=== PATIENT | female | born 1950 | race Caucasian/White ===

== ENCOUNTER → 2018-11-17 15:01 | Outpatient (CLI) | payer MEDICARE, OTHER, SELFPAY | PROVIDERS: Family Provider Internal Medicine; PCP Internal Medicine; Visit Provider Internal Medicine | DX: M85.851 Other specified disorders of bone density and structure, right thigh (principal); Z78.0 Asymptomatic menopausal state; Z82.62 Family history of osteoporosis | CPT/HCPCS: 77080 ==

== ENCOUNTER → 2019-01-18 11:33 | Outpatient (CLI) | payer MEDICARE, OTHER, SELFPAY ==
--- NOTE | 2019-01-18 | DI.MG.S_ITS ---
BILATERAL DIGITAL SCREENING MAMMOGRAM 3D/2D WITH CAD: 01/18/2019 CLINICAL: Routine screening. Family history of breast cancer. Comparison is made to exams dated: 01/05/2018 mammogram, 11/15/2016 mammogram, and 11/10/2015 mammogram - [facility]. The tissue of both breasts is heterogeneously dense. This may lower the sensitivity of mammography. Current study was also evaluated with a Computer Aided Detection (CAD) system. There are a grouped calcifications in the left breast at 8 o'clock anterior depth. These are more prominent and increased in number. No other significant masses, calcifications, or other findings are seen in either breast. IMPRESSION: INCOMPLETE: NEEDS ADDITIONAL IMAGING EVALUATION The grouped calcifications in the left breast are indeterminate. Mediolateral, spot magnification, and additional views are recommended. This exam was interpreted at Station ID: [id number]. NOTE: For mammograms, a report in lay terms will be sent to the patient. Approximately 15% of breast malignancies will not be visualized mammographically. In the management of a palpable breast mass, a negative mammogram must not discourage biopsy of a clinically suspicious lesion. Electronically Signed By: Callum Crowe M.D. aty/:01/18/2019 13:10:25 letter sent: Additional Imaging Needed ACR BI-RADS Category 0: Incomplete 3340F
== END ==
PROVIDERS: Family Provider Internal Medicine; PCP Internal Medicine; Visit Provider Internal Medicine
DX: Z12.31 Encounter for screening mammogram for malignant neoplasm of breast (principal); Z80.3 Family history of malignant neoplasm of breast
CPT/HCPCS: 77063; 77067

== ENCOUNTER → 2019-02-02 09:37 | Outpatient (CLI) | payer MEDICARE, OTHER, SELFPAY ==
--- NOTE | 2019-02-02 | DI.MG.S_ITS ---
UNILATERAL LEFT DIGITAL DIAGNOSTIC MAMMOGRAM 3D/2D WITH ADDITIONAL VIEWS: 02/02/2019 CLINICAL: Additional evaluation requested from prior study. Comparison is made to exams dated: 01/18/2019 mammogram, 01/05/2018 mammogram, and 11/15/2016 mammogram - [facility]. The tissue of left breast is heterogeneously dense. This may lower the sensitivity of mammography. The previously described grouped calcifications appear to be more loosely grouped on additional imaging and also appear more similar to calcifications on 2018 mammograms. They are visualized in the left breast at 8 o'clock anterior depth. Overall, these are not significantly changed. No other significant masses or calcifications are seen in the breast. IMPRESSION: There is no mammographic evidence of malignancy. A 1 year screening mammogram is recommended. This exam was interpreted at Station ID: [id number]. NOTE: For mammograms, a report in lay terms will be sent to the patient. Approximately 15% of breast malignancies will not be visualized mammographically. In the management of a palpable breast mass, a negative mammogram must not discourage biopsy of a clinically suspicious lesion. Electronically Signed By: Callum Crowe M.D. aty/:02/02/2019 10:56:58 letter sent: Normal Exam ACR BI-RADS Category 2: Benign Finding(s) 3342F
== END ==
PROVIDERS: PCP Internal Medicine; Visit Provider Internal Medicine
DX: R92.8 Other abnormal and inconclusive findings on diagnostic imaging of breast (principal)
CPT/HCPCS: 77065; G0279

== ENCOUNTER → 2020-03-19 08:13 | Outpatient (CLI) | payer MEDICARE, OTHER, SELFPAY ==
--- NOTE | 2020-03-19 | DI.MG.S_ITS ---
BILATERAL DIGITAL SCREENING MAMMOGRAM 3D/2D WITH CAD: 03/19/2020 CLINICAL: Routine screening. Family history of breast cancer. Comparison is made to exams dated: 01/18/2019 mammogram, 01/05/2018 mammogram, and 11/15/2016 mammogram - [facility]. The tissue of both breasts is heterogeneously dense. This may lower the sensitivity of mammography. Current study was also evaluated with a Computer Aided Detection (CAD) system. There are benign calcifications in both breasts. No significant masses, calcifications, or other findings are seen in either breast. The previously described grouped calcifications appear to be more loosely grouped on additional imaging and also appear more similar to calcifications on 2018 mammograms. They are visualized in the left breast at 8 o'clock anterior depth. Overall, these are not significantly changed. No other significant masses or calcifications are seen in the breast. There has been no overall significant interval change. IMPRESSION: There is no mammographic evidence of malignancy. A 1 year screening mammogram is recommended. This exam was interpreted at Station ID: [id number]. NOTE: For mammograms, a report in lay terms will be sent to the patient. Approximately 15% of breast malignancies will not be visualized mammographically. In the management of a palpable breast mass, a negative mammogram must not discourage biopsy of a clinically suspicious lesion. Electronically Signed By: Callum Crowe M.D. at/:03/19/2020 09:32:15 letter sent: Normal Exam ACR BI-RADS Category 2: Benign Finding(s) 3342F
== END ==
PROVIDERS: PCP Internal Medicine; Referring Provider Internal Medicine; Visit Provider Internal Medicine
DX: Z12.31 Encounter for screening mammogram for malignant neoplasm of breast (principal); Z80.3 Family history of malignant neoplasm of breast
CPT/HCPCS: 77063; 77067

== ENCOUNTER → 2020-07-26 15:08 | Outpatient (CLI) | payer OTHER, SELFPAY ==
[2020-07-26 16:58] LABS: COVID19 -Nasal RAPID Negative (Negative)
== END ==
PROVIDERS: PCP Internal Medicine; Visit Provider Physician Assistant
DX: Z11.59 Encounter for screening for other viral diseases (principal)
CPT/HCPCS: 87635

== ENCOUNTER 2020-07-28 11:54 | Day surgery (SDC) | payer OTHER, SELFPAY ==
[2020-07-28] VITALS (7 sets, daily range): BP systolic 97–141; BP diastolic 46–82; PULSE 54–87; RESP 9–16; TEMP 36.4–36.9; O2SAT 92–98; BMI 36.0
[2020-07-28] MEDS: LACTATED RINGERS 1,000 ML 42 ML IV (12:20)
--- NOTE | 2020-07-28 12:21 | PM.HP.1 ---
History of Present Illness History of Present Illness Date Patient Seen: 07/28/20 Chief complaint: SCREENING COLONOSCOPY Narrative: 70 year old female he comes in today for consideration of a screening colonoscopy. Two previous colonoscopies, polyps both times. Last colonoscopy approximately 3 years ago. There have been no lower GI symptoms suggesting disease such as change in bowel habits, bleeding, abdominal pain or anemia. Her father had colon cancer, lived to . Overall health issues have been stable, including no major cardiac events for at least 6 weeks. PCP: GUY Styles Patient History Medical History (Updated 07/31/18 @ 09:24 by Mary Baez) Chicken pox Colon polyps (07/21/09) Depression (2011) Hayfever Insomnia Measles Menopause Mumps Rubella Urge urinary incontinence Surgical History (Updated 07/31/18 @ 09:24 by Mary Baez) Anesthesia History of colonoscopy with polypectomy (04/13/16) History of colonoscopy with polypectomy (07/21/09) History of removal of skin mole Status post appendectomy (09/1980) Family & Social History Family History (Updated 07/31/18 @ 09:03 by Mary Baez) Brother Age: 63 Overweight Father Colon cancer Skin cancer Prostate cancer Grandfather Heart disease Hypertension Grandmother Breast cancer Mother Age: 92 Hypothyroid Hypertension Knee pain Grandfather Cancer Colon cancer Sister Age: 69 Hypothyroid Sister Age: 61 Breast cancer Grandmother No problems noted. Sister No problems noted. Family/Other No problems noted. Family/Other No problems noted. Family/Other No problems noted. Family/Other No problems noted. Social History: household members spouse Tobacco & Substance use: Smoking Status Never smoker alcohol intake frequency holiday/special occasion Substance Use Type does not use Meds Home Medications and Allergies Home Medications Medication Instructions Recorded Confirmed Type aspirin 324 mg #0 08/18/16 History omeprazole 40 mg PO HS 14 Days #0 cap 08/18/16 Rx Allergies Allergy/AdvReac Type Severity Reaction Status Date / Time No Known Drug Allergies Allergy Verified 07/28/20 12:07 Review of Systems Review of Systems ROS: Yes All systems reviewed with the patient and are negative except as otherwise documented Exam Vital Signs (past 8 hours): - 07/28/20 12:15 Temperature 98.5 F Pulse Rate 87 Respiratory Rate 16 Blood Pressure 141/82 H Pulse Oximetry 98 Oxygen Delivery Method Room Air Narrative Exam Narrative: GENERAL: Alert and oriented, appearing stated age and in no acute distress. HEENT: Head normocephalic/atraumatic. Pupils equal, round, and reactive to light and accomodation. Extraocular muscles intact. Tympanic membranes clear. Nasal mucosa moist, septum midline. Oral mucosa moist, no lesions. Neck soft and supple, no lymphadenopathy. LUNGS: Clear to ausculation bilaterally, no wheezes, rhonchi or rales. CV: Normal S1 and S2 with regular rate and rhythm, no audible murmurs, rubs or gallops. ABDOMEN: Soft, non-tender, non-distended, no organomegaly. Positive bowel sounds. EXTREMITIES: No clubbing, cyanosis, or edema. NEURO: Cranial nerves II through XII grossly intact, no focal deficits. PSYCH: Alert and oriented x 3. SKIN: No concerning lesions. Assessment & Plan Assessment & Plan narrative: 1. History of colon polyps 2. Family history of colon cancer 3. Screening for colon cancer Plan for colonoscopy. The nature and character of the procedure as well as anticipated results were discussed. The possibility of not completing the procedure was also discussed. Possible complications including aspiration pneumonia, bleeding, perforation and reaction to medications either for sedation or preparation and missed lesions were discussed. Questions were answered and proceeding to the colonoscopy was elected. Informed consent signed. I sincerely appreciate the referral allowing me to participate in this patient's care. Please contact me with any questions or concerns.
--- NOTE | 2020-07-28 12:26 | PM.OP.ENDO ---
Operative Date/Time/Diagnoses Date of procedure: 07/28/20 Procedure & Clinicians Study performed: Time spent on Discharge and Coordination of post-hospital care: 35 minutes Procedure Notes SCOAP/Timeout: 1:14 p.m. Procedure in detail: ENDOSCOPIST: Neha Bhatt MD Sedation RN: Mara Dietrich RN Sedation start time: 1:15 p.m. Sedation end time: 1:37 p.m. PROCEDURE: Colonoscopy INDICATIONS: 1. History of colon polyps 2. Family history of colon cancer 3. Screening for colon cancer MEDICATION: Levsin 0.125 mg sublingual, incremental doses of Versed and fentanyl until appropriate level sedation achieved. ASA CLASS: 2 CECAL WITHDRAWAL TIME: 8 minutes COMPLICATIONS: None. EXTENT OF PROCEDURE: Cecum. QUALITY OF PREP: Good with portions of liquid stool. PROCEDURE: Prior to insertion of the colonoscope, a digital rectal examination was accomplished with circumferential palpation of the distal rectal mucosa without significant findings being noted. The high-definition colonoscope was passed into the rectum in the usual fashion and advanced over to the cecum without difficulty. The ileocecal valve, appendiceal stoma, and medial wall all could be inspected and no abnormalities were seen. ASCENDING COLON: As the colonoscope was withdrawn, care was taken to expose and inspect the haustral folds and no abnormalities were seen. HEPATIC FLEXURE: Normal, no polyps, diverticula or other abnormalities. TRANSVERSE COLON: Normal, no polyps, diverticula or other abnormalities. DESCENDING COLON: Normal, no polyps, diverticula or other abnormalities. SIGMOID COLON: Normal, no polyps, diverticula or other abnormalities. RECTUM: Normal. J maneuver was produced. There was no significant perianal disease. The J maneuver was broken. The remainder of the rectum was inspected and there was no external hemorrhoid disease. The scope was withdrawn. IMPRESSION: 1. Normal colonoscopy PLAN: 1. Repeat colonoscopy in 5 years secondary to family history. The possibility of a missed lesion including a malignancy has been discussed with the patient previously. Potential alarm symptoms have been discussed and should be reported immediately.
[2020-07-28] MEDS: HYOSCYAMINE 0.125 MG TABLET PO (12:37)
[2020-07-28] MEDS: MIDAZOLAM 5 MG/5 ML VIAL IV (13:30)
[2020-07-28] MEDS: fentaNYL 250 MCG/5 ML INJ IV (13:31)
== END 2020-07-28 14:30 | disposition home or self-care (01) ==
PROVIDERS: PCP Internal Medicine; Referring Provider Internal Medicine; Visit Provider Student in an Organized Health Care Education/Training Program
PROC: 0DJD8ZZ Inspection of Lower Intestinal Tract, Via Natural or Artificial Opening Endoscopic (ICD-10-PCS; CPT 45378; principal; 2020-07-28 13:00)
DX: Z12.11 Encounter for screening for malignant neoplasm of colon (principal); Z80.0 Family history of malignant neoplasm of digestive organs; Z86.010 Personal history of colon polyps
CPT/HCPCS: G0105; J2250; J3010

== ENCOUNTER → 2020-12-19 13:26 | Outpatient (CLI) | payer OTHER, SELFPAY | PROVIDERS: PCP Internal Medicine; Referring Provider Internal Medicine; Visit Provider Internal Medicine | DX: M85.851 Other specified disorders of bone density and structure, right thigh (principal) | CPT/HCPCS: 77080 ==

== ENCOUNTER → 2021-03-27 10:33 | Outpatient (CLI) | payer OTHER, SELFPAY ==
--- NOTE | 2021-03-27 10:34 | DI.MG.S_ITS ---
BILATERAL DIGITAL SCREENING MAMMOGRAM 3D/2D WITH CAD: 03/27/2021 CLINICAL: Routine screening. Family history of breast cancer. Comparison is made to exams dated: 03/19/2020 mammogram, 01/18/2019 mammogram, and 01/05/2018 mammogram - [facility]. The tissue of both breasts is heterogeneously dense. This may lower the sensitivity of mammography. Current study was also evaluated with a Computer Aided Detection (CAD) system. There are benign calcifications in both breasts. No significant masses, calcifications, or other findings are seen in either breast. There has been no significant interval change. IMPRESSION: BENIGN There is no mammographic evidence of malignancy. A 1 year screening mammogram is recommended. This exam was interpreted at Station ID: [id number]. NOTE: For mammograms, a report in lay terms will be sent to the patient. Approximately 15% of breast malignancies will not be visualized mammographically. In the management of a palpable breast mass, a negative mammogram must not discourage biopsy of a clinically suspicious lesion. Electronically Signed By: Callum schwab/andres:03/27/2021 14:35:49 letter sent: Normal Exam ACR BI-RADS Category 2: Benign Finding(s) 3342F
== END ==
PROVIDERS: PCP Internal Medicine; Referring Provider Internal Medicine; Visit Provider Internal Medicine
DX: Z12.31 Encounter for screening mammogram for malignant neoplasm of breast (principal); Z80.3 Family history of malignant neoplasm of breast
CPT/HCPCS: 77063; 77067

== ENCOUNTER 2022-01-01 20:14 | Emergency (ER) | payer MEDICARE, OTHER, SELFPAY ==
[2022-01-01 20:40] VITALS: BP 182/75; PULSE 77; RESP 16; TEMP 36.8; O2SAT 97; BMI 33.3
--- NOTE | 2022-01-01 21:08 | DI.US.S_ITS ---
PROCEDURE: US PERIPH VENOUS LOW EXTREM LT INDICATIONS: suspected DVT Left leg TECHNIQUE: Real-time imaging, as well as color and pulse Doppler interrogation, were performed of the lower extremity deep veins from the inguinal ligament to the popliteal fossa. COMPARISON: None. FINDINGS: The common femoral, femoral and popliteal veins are normally compressible, and free of intraluminal thrombus. Color and pulse Doppler demonstrate normal phasic intraluminal flow. There is normal augmentation response to distal compression maneuver. IMPRESSION: No DVT. Dictated by: Miguel Angel Reyes M.D. on 01/01/2022 at 22:04 Approved by: Miguel Angel Reyes M.D. on 01/01/2022 at 22:05
--- NOTE | 2022-01-02 00:35 | ED.EXTPRO ---
HPI - Extremity Problem General Chief complaint: Extremity Problem,Nontraumatic Stated complaint: Pain lower left leg Time Seen by Provider: 01/02/22 00:20 Source: patient and family Mode of arrival: Ambulatory History of Present Illness HPI Narrative: Patient is a 71-year-old female who is here for evaluation of several days of pain behind her left knee. She was concerned about a blood clot. She has no swelling at her left lower extremity. No chest pain. No shortness of breath. No prior history of blood clots. Does not remember anyone specific incident that caused the discomfort although she states that it does hurt when she bends over and picks up objects. Related Data Home Medications Medication Instructions Recorded Confirmed aspirin 81 mg tablet,delayed 324 mg #0 08/18/16 release Previous Rx's Medication Instructions Recorded omeprazole 40 mg capsule,delayed 40 mg PO HS 14 Days #0 cap 08/18/16 release Allergies Allergy/AdvReac Type Severity Reaction Status Date / Time No Known Drug Allergies Allergy Verified 07/28/20 12:07 Review of Systems Constitutional Constitutional: Denies fever(s) Cardiovascular Cardiovascular: Denies chest pain and Denies dyspnea Respiratory Respiratory: Denies dyspnea Musculoskeletal Musculoskeletal: Reports system reviewed and no additional complaints, except as documented and Reports as per HPI Integumentary/Breasts Skin/Breast: Reports system reviewed and no additional complaints, except as documented and Reports as per HPI Hematologic/Lymphatic On Anticoagulants: No Patient History Medical History Chicken pox Colon polyps (07/21/09) Depression (2011) Hayfever Insomnia Measles Menopause Mumps Rubella Urge urinary incontinence Surgical History (Updated 07/31/18 @ 09:24 by Mary Baez) Anesthesia History of colonoscopy with polypectomy (04/13/16) History of colonoscopy with polypectomy (07/21/09) History of removal of skin mole Status post appendectomy (09/1980) Family History (Updated 07/31/18 @ 09:03 by Mary Baez) Brother Age: 65 Overweight Father Colon cancer Skin cancer Prostate cancer Grandfather Heart disease Hypertension Grandmother Breast cancer Mother Age: 94 Hypothyroid Hypertension Knee pain Grandfather Cancer Colon cancer Sister Age: 71 Hypothyroid Sister Age: 63 Breast cancer Grandmother No problems noted. Sister No problems noted. Family/Other No problems noted. Family/Other No problems noted. Family/Other No problems noted. Family/Other No problems noted. Social History household members: spouse Smoking Status: Never smoker Smoking Status: Never smoker alcohol intake frequency: holidays/special occasions only Substance Use Type: does not use Exam Initial Vital Signs Initial Vital Signs: Vital Signs Temperature 98.3 F 01/01/22 20:40 Pulse Rate 77 01/01/22 20:40 Respiratory Rate 16 01/01/22 20:40 Blood Pressure 182/75 H 01/01/22 20:40 Pulse Oximetry 97 01/01/22 20:40 HENMT Head: normal to inspection and normocephalic Resp Effort & Inspection: normal respiratory effort Cardio Rate: regular rate Neuro General: patient alert, patient awake and moves all extremities Extrem Other: Patient with tenderness to palpation along the medial hamstring posteriorly and along the medial hamstring tendon along its insertion site. The rest of her left knee exam is unremarkable. Course Orders Ordered: ED Orders 01/01/22 21:08 US periph venous low extrem lt Stat Vital Signs Vital signs: Vital Signs - 8 hr 01/01/22 20:40 01/02/22 00:44 Temperature 98.3 F Pulse Rate 77 60 Respiratory Rate 16 14 Blood Pressure 182/75 H 166/75 H Pulse Oximetry 97 96 MDM - Extremity (Nontraumatic) Imaging Data US - DVT: Radiologist's Impression: [address] [address] Ultrasound Report Signed Patient: Regina Reynolds MR#: [id number] : 1950 Acct:[id number] Age/Sex: 71 / F Date of Service: 01/01/22 Loc: ED Accession Number: [id number] ?? Procedure: US periph venous low extrem lt Ordering Provider: Lisa Ye D.O. PROCEDURE:? US PERIPH VENOUS LOW EXTREM LT ? INDICATIONS:? suspected DVT Left leg ? TECHNIQUE:? Real-time imaging, as well as color and pulse Doppler interrogation, were performed of the lower extremity deep veins from the inguinal ligament to the popliteal fossa.? ? COMPARISON:? None. ? FINDINGS:? The common femoral, femoral and popliteal veins are normally compressible, and free of intraluminal thrombus.? Color and pulse Doppler demonstrate normal phasic intraluminal flow.? There is normal augmentation response to distal compression maneuver. ? ? IMPRESSION:? No DVT. ? ? Dictated by: Miguel Angel Reyes M.D. on 01/01/2022 at 22:04 ? ? Approved by: Miguel Angel Reyes M.D. on 01/01/2022 at 22:05?? MDM Narrative Medical decision making narrative: Ultrasound shows no signs of DVT. On physical exam I have a higher suspicion that her symptoms are her left medial hamstring sprain given the discomfort that is clearly along this hamstring and along the hamstring tendon. I did discuss this with her. No further workup required in the emergency department patient will be discharged home. She was given return precautions. She expressed understanding and agreement. Discharge Plan Departure Patient Disposition: Home Clinical Impression: Left leg pain Instructions: DI for Hamstring Strain Activity Restrictions/Additional Instructions: You can take Tylenol/ibuprofen for any discomfort. You can keep ice over the areas this may improve your symptoms as well. Return to the emergency department for any new or worsening symptoms Prescriptions: No Action aspirin 81 MG tablet,delayed release (DR/EC) 324 mg Qty: 0 0RF omeprazole 40 MG capsule,delayed release(DR/EC) 40 mg PO HS 14 Days Qty: 0 0RF Referrals: Alpa Mckeon ARNP [Primary Care Provider] -
[2022-01-02 00:44] VITALS: BP 166/75; PULSE 60; RESP 14; O2SAT 96
== END 2022-01-02 00:45 | disposition home or self-care (01) ==
PROVIDERS: Emergency Provider Emergency Medicine; PCP Internal Medicine
DX: M25.562 Pain in left knee (principal); M79.662 Pain in left lower leg
CPT/HCPCS: 93971; 99283

== ENCOUNTER → 2022-01-11 15:27 | Outpatient (CLI) | payer MEDICARE, OTHER, SELFPAY ==
--- NOTE | 2022-01-11 | DI.RAD.S_ITS ---
PROCEDURE: XR KNEE LT 3V INDICATIONS: LEFT KNEE PAIN TECHNIQUE: 3 views of the knee were acquired. COMPARISON: None. FINDINGS: Bones: No fractures or dislocations. No suspicious bony lesions. Mild to moderate medial and patellofemoral compartment narrowing. No erosions. Soft tissues: Moderate joint effusion. No suspicious soft tissue calcifications. IMPRESSION: Moderate diversion. Dedb-bs-pbyqnari medial and patellofemoral arthritic narrowing. No visualized acute fracture or dislocation. However, if clinical concern and/or pain persist, short interval imaging followup in 7-10 days is recommended, as occult injury cannot be definitively excluded. Dictated by: Margo Victor M.D. on 01/11/2022 at 16:56 Approved by: Margo Victor M.D. on 01/11/2022 at 16:56
== END ==
PROVIDERS: PCP Internal Medicine; Referring Provider Internal Medicine; Visit Provider Internal Medicine
DX: M25.562 Pain in left knee (principal)
CPT/HCPCS: 73562

== ENCOUNTER → 2022-04-02 13:05 | Outpatient (CLI) | payer MEDICARE, OTHER, SELFPAY ==
--- NOTE | 2022-04-02 | DI.MG.S_ITS ---
BILATERAL DIGITAL SCREENING MAMMOGRAM 3D/2D WITH CAD: 04/02/2022 CLINICAL: Routine screening. Family history of breast cancer. Comparison is made to exams dated: 03/27/2021 mammogram, 03/19/2020 mammogram, and 01/18/2019 mammogram - [facility]. The tissue of both breasts is heterogeneously dense. This may lower the sensitivity of mammography. Current study was also evaluated with a Computer Aided Detection (CAD) system. There are benign calcifications in both breasts. No significant masses, calcifications, or other findings are seen in either breast. There has been no significant interval change. IMPRESSION: BENIGN There is no mammographic evidence of malignancy. A 1 year screening mammogram is recommended. Based on the Tyrer Cuzick model (a risk assessment model) the patient's lifetime risk is 14.8% and her 10 year risk is 8.9%. According to the ACR, ACS, and NCCN guidelines, an annual breast MRI exam along with mammogram is recommended if the patient's lifetime risk is 20% or greater. This exam was interpreted at Station ID: [id number]. NOTE: For mammograms, a report in lay terms will be sent to the patient. Approximately 15% of breast malignancies will not be visualized mammographically. In the management of a palpable breast mass, a negative mammogram must not discourage biopsy of a clinically suspicious lesion. Electronically Signed By: Zaida mosley/andres:04/02/2022 16:19:14 letter sent: Normal Exam ACR BI-RADS Category 2: Benign Finding(s) 3342F
== END ==
PROVIDERS: PCP Internal Medicine; Referring Provider Internal Medicine; Visit Provider Internal Medicine
DX: Z12.31 Encounter for screening mammogram for malignant neoplasm of breast (principal); Z80.3 Family history of malignant neoplasm of breast
CPT/HCPCS: 77063; 77067

== ENCOUNTER → 2022-04-26 11:18 | Outpatient (CLI) | payer MEDICARE, OTHER, SELFPAY ==
--- NOTE | 2022-04-26 | DI.MRI.S_ITS ---
PROCEDURE: MR KNEE LT WO CON INDICATIONS: Left knee pain TECHNIQUE: Noncontrast sagittal PD fast spin echo and T2 fast spin echo with fat saturation, sagittal 3-D FLASH with fat saturation; coronal T1 spin echo and PD fast spin echo with fat saturation, and axial PD fast spin echo with fat saturation through the knee. COMPARISON: [facility], CR, XR KNEE LT 3V, 01/11/2022, 15:28. FINDINGS: Image quality: Excellent. Menisci: Moderately displaced radial tear of the posterior horn medial meniscus at the meniscal root ligament insertion site. Amorphous and linear oblique high signal intensity involves the inner, middle, and peripheral 3rd of the medial meniscal body, demonstrating inferior articular surface extension, indicating complex tearing. Lateral meniscus is intact. Cruciate ligaments: The anterior and posterior cruciate ligaments appear intact. Medial structures: The medial collateral ligament appears intact, but demonstrates mild surrounding T2 signal elevation superiorly. Visualized portions of the pes anserinus tendons appear normal. No abnormal bursal fluid. Lateral structures: The lateral collateral ligament, long and short heads of the biceps femoris tendon appear intact. The popliteus tendon appears normal. Iliotibial band appears normal. Anterior structures: The quadriceps and patellar tendons appear intact. Patellar alignment is normal. No femoral trochlear dysplasia or ventral trochlear prominence. No edema in the infrapatellar fat pad. Bones and cartilage: No bone marrow contusions or fractures. Mild tricompartmental periarticular osteophyte formation. Moderate articular cartilage loss diffusely overlies the weight-bearing aspects of the medial femoral condyle and medial tibial plateau. Articular cartilage fibrillation overlies the lateral patellar facet. Joint space: There is a moderate knee joint effusion and a small Dinero's cyst. Normal appearing synovial plicae are incidentally noted. IMPRESSION: 1. Tricompartmental osteoarthritis with associated articular cartilage loss. 2. Medial meniscal tearing. 3. Knee joint effusion and Dinero's cyst. Dictated by: Robbie Abdullahi M.D. on 04/26/2022 at 14:47 Transcribed by: JOSE on 04/26/2022 at 14:49 Approved by: Robbie Abdullahi M.D. on 04/26/2022 at 16:31
== END ==
PROVIDERS: PCP Internal Medicine; Referring Provider Internal Medicine; Visit Provider Internal Medicine
DX: S83.231A Complex tear of medial meniscus, current injury, right knee, initial encounter (principal); M17.12 Unilateral primary osteoarthritis, left knee; M71.22 Synovial cyst of popliteal space [Baker], left knee; M25.462 Effusion, left knee; M25.562 Pain in left knee
CPT/HCPCS: 73721

== ENCOUNTER → 2023-04-27 07:50 | Outpatient (CLI) | payer MEDICARE, OTHER, SELFPAY ==
--- NOTE | 2023-04-27 | DI.MG.S_ITS ---
BILATERAL DIGITAL SCREENING MAMMOGRAM 3D/2D WITH CAD: 04/27/2023 CLINICAL: Routine screening. Family history of breast cancer. Comparison is made to exams dated: 04/02/2022 mammogram, 03/27/2021 mammogram, and 03/19/2020 mammogram - [facility]. Both breasts are heterogeneously dense, which may obscure small masses (category c / 51-75% glandular tissue). Current study was also evaluated with a Computer Aided Detection (CAD) system. There are benign calcifications in both breasts. No significant masses, calcifications, or other findings are seen in either breast. There has been no significant interval change. IMPRESSION: BENIGN There is no mammographic evidence of malignancy. A 1 year screening mammogram is recommended. Based on the Tyrer Cuzick model (a risk assessment model) the patient's lifetime risk is 14.1% and her 10 year risk is 9.0%. According to the ACR, ACS, and NCCN guidelines, an annual breast MRI exam along with mammogram is recommended if the patient's lifetime risk is 20% or greater. This exam was interpreted at Station ID: [id number]. NOTE: For mammograms, a report in lay terms will be sent to the patient. Approximately 15% of breast malignancies will not be visualized mammographically. In the management of a palpable breast mass, a negative mammogram must not discourage biopsy of a clinically suspicious lesion. Electronically Signed By: Jazmin peacock/andres:04/27/2023 11:58:58 letter sent: Normal Exam ACR BI-RADS Category 2: Benign Finding(s) 3342F
== END ==
PROVIDERS: PCP Internal Medicine; Referring Provider Internal Medicine; Visit Provider Internal Medicine
DX: Z12.31 Encounter for screening mammogram for malignant neoplasm of breast (principal); Z80.3 Family history of malignant neoplasm of breast
CPT/HCPCS: 77063; 77067

== ENCOUNTER → 2023-07-15 10:43 | Outpatient (CLI) | payer MEDICARE, OTHER, SELFPAY ==
--- NOTE | 2023-07-15 | DI.RAD.S_ITS ---
Bone Density Report Name: MARISELA CHADWICK Age: 73 Sex: Female Ethnicity: White Date of : 1950 Indication: postmenopausal; screening for osteoporosis; parental hip fracture; Referring Provider: RICHIE BAKER Study: Bone densitometry was performed. Exam Date: July 15, 2023 Accession number: [id number] Bone Density: Region BMD T-score Z-score Classification AP Spine(L1, L2, L3) 0.975 -0.4 1.7 Normal Femoral Neck (Left) 0.723 -1.1 0.7 Osteopenia Total Hip (Left) 0.925 -0.1 1.4 Normal Femoral Neck (Right) 0.760 -0.8 1.1 Normal Total Hip (Right) 0.944 0.0 1.6 Normal Total Hip Mean 0.934 -0.1 1.5 Normal World Health Organization criteria for BMD impression classify patients as: Normal (T-score at or above -1.0), Osteopenia (T-score between -1.0 and -2.5), or Osteoporosis (T-score at or below -2.5). 10-year Fracture Risk(1): Major Osteoporotic Fracture 13% Hip Fracture 2.4% Reported Risk Factors: [place] (), Neck BMD=0.723, BMI=36.0, parental fracture (1) FRAX(R) Version 3.08. Fracture probability calculated for an untreated patient. Fracture probability may be lower if the patient has received treatment. Previous Exams: -- Region Exam Age BMD T-score BMD Change BMD Change Date g/cm2 vs Baseline vs Previous -- AP Spine (L1-L3) 07/15/2023 73 0.975 -0.4 0.051 (5.5%)# -0.003 (-0.4%)# 12/19/2020 70 0.979 -0.4 0.054 (5.8%)* 0.054 (5.8%)* 11/17/2018 68 0.925 -0.8 Total Hip(Left) 07/15/2023 73 0.925 -0.1 0.028 (3.2%)# -0.002 (-0.2%)# 12/19/2020 70 0.926 -0.1 0.030 (3.4%)* 0.030 (3.4%)* 11/17/2018 68 0.896 -0.4 Total Hip(Right) 07/15/2023 73 0.944 0.0 0.090 (10.5%)# 0.074 (8.5%)# 12/19/2020 70 0.870 -0.6 0.016 (1.8%) 0.016 (1.8%) 11/17/2018 68 0.854 -0.7 -- *Denotes significance at 95% confidence level, LSC for AP Spine = 0.022 g/cm2, LSC for Total Hip = 0.027 g/cm2 Rate of change results reflect vertebral levels common to all scans # Denotes dissimilar scan types or analysis methods Impression: The patient has low bone mass, based on the Left Femoral Neck T-score. The patient has an estimated ten-year risk of hip fracture of 2.4% and an estimated ten-year risk of major fracture of 13%, based on the WHO FRAX algorithm. The patient has risk factors, including: parental hip fracture. No significant bone loss was observed. Discussion: BONE DENSITY IS LOW AT ONE OR MORE SKELETAL SITES. This patient's lowest T-score is low at one or more skeletal sites. It meets the World Health Organization's (WHO) criteria for low bone mass (T-score between -1.0 and -2.5). The patient's 10-year risk of fracture as calculated by FRAX is less than the threshold where pharmacological therapy is recommended by the National Osteoporosis Foundation (NOF). However, all treatment decisions require clinical judgment and consideration of individual patient factors, including patient preferences, comorbidities, previous drug use, risk factors not captured in the FRAX model (e.g., frailty, falls, vitamin D deficiency, increased bone turnover, interval significant decline in bone density) and possible under or overestimation of fracture risk by FRAX. The patient should follow a healthful lifestyle (good nutrition with adequate calcium and vitamin D, and appropriate weight-bearing exercise). Follow-Up: Consider repeating this study in 2 to 3 years to reassess this patient's status, or sooner if there is some new clinical indication. Reported by: MICHELLE CONDON M.D. on 07/15/2023 11:20:00 AM.
== END ==
PROVIDERS: PCP Internal Medicine; Referring Provider Internal Medicine; Visit Provider Internal Medicine
DX: N95.9 Unspecified menopausal and perimenopausal disorder (principal); M85.852 Other specified disorders of bone density and structure, left thigh
CPT/HCPCS: 77080

== ENCOUNTER → 2023-09-28 07:41 | Outpatient (CLI) | payer MEDICARE, OTHER, SELFPAY ==
--- NOTE | 2023-09-28 07:42 | DI.US.S_ITS ---
PROCEDURE: US PELVIC COMPLETE INDICATIONS: PMB TECHNIQUE: Real-time scanning was performed of the pelvic organs, with image documentation. Additional endovaginal scanning was necessary due to incomplete visualization of the adnexal and endometrial structures by transabdominal scanning. COMPARISON: None. FINDINGS: Uterus: Uterus is anteverted and normal in size at 8.5 x 5.7 x 4.0 cm. The myometrium is heterogeneous. The endometrium measures 9 mm combined thickness. Internal cystic change within the endometrium Ovaries: The right ovary measures 7.8 x 6.3 x 6.7 cm, with a calculated ovarian volume of 172 cc. The the left ovary is not visualized. Left ovarian cystic lesion with possible , punctate papillary projection measuring 6.6 x 5.9 x 6.1 centimeters. Within the mid pelvis, there is a solid and cystic lesion measuring 15.2 x 13.6 x 11.7 centimeters. Other: No pathologic free abdominal or pelvic fluid. IMPRESSION: Endometrium measures 9 millimeters, with internal cystic change. Findings favor endometrial hypertrophy over malignancy. Heterogeneous, solid and cystic mass in the posterior pelvis measuring 15.2 x 13.6 x0.7 centimeters. Findings are concerning for malignancy, possibly ovarian in origin. Recommend pelvic MRI with contrast (gynecologic mass protocol). Right ovarian cystic lesion with possible punctate papillary projection. This could be evaluated with MRI. We strive to produce accurate, complete, and clear reports of imaging services. To assist us in improving patient care, this report was composed using standard report templates and voice recognition software. Therefore, it may contain abnormal punctuation, insertions and/or omissions. Occasional wrong-word or sound-alike substitutions may occur. Though we review the report and make efforts to correct it, we do recommend that the report be read carefully in proper context to recognize any text inaccuracies. Dictated by: Mckinley Odell M.D. on 09/28/2023 at 9:00 Approved by: Mckinley Odell M.D. on 09/28/2023 at 9:06
== END ==
LOC: US 07:42
PROVIDERS: PCP Internal Medicine; Referring Provider Registered Nurse; Visit Provider Registered Nurse
DX: N95.0 Postmenopausal bleeding (principal); R19.00 Intra-abdominal and pelvic swelling, mass and lump, unspecified site; N83.201 Unspecified ovarian cyst, right side
CPT/HCPCS: 76830; 76856; 93976

== ENCOUNTER → 2023-09-30 08:10 | Outpatient (CLI) | payer MEDICARE, OTHER, SELFPAY ==
--- NOTE | 2023-09-30 08:13 | DI.US.S_ITS ---
PROCEDURE: US ABDOMEN COMPLETE INDICATIONS: PELVIC MASS,ABNORMAL LIVER ENZYMES TECHNIQUE: Real-time scanning was performed of the abdominal and retroperitoneal organs, with image documentation. COMPARISON: [facility], US, ABDOMEN COMPLETE, 12/12/2015, 8:23. FINDINGS: Liver: Liver is normal in size and homogeneous in echotexture. No solid mass. Gallbladder: Cholelithiasis without wall thickening or adjacent fat stranding to suggest acute cholecystitis. Biliary ducts: Intrahepatic bile ducts are non-dilated. Extrahepatic bile duct caliber measures 4 mm. Normal is 6-7 mm or less in diameter, or 10 mm or less post-cholecystectomy. Pancreas: Visualized portions of the pancreas are sonographically normal. Spleen: Spleen is normal in size and homogeneous in echotexture. Kidneys: Kidneys are normal in size and echotexture. Right kidney measures 11.3 cm long; left kidney measures 11.7 cm long. No hydronephrosis or nephrolithiasis. No solid masses. Aorta: Visualized aorta is normal in caliber at less than 3 cm. Iliacs: Proximal common iliac arteries are normal in caliber at less than 2.5 cm. IVC: Intrahepatic inferior vena cava is patent. Miscellaneous: Small volume ascites. IMPRESSION: Small volume ascites, probably malignant given pelvic ultrasound and MRI findings. No solid hepatic mass. Cholelithiasis without wall thickening or adjacent fat stranding to suggest acute cholecystitis. Dictated by: Mckinley Odell M.D. on 09/30/2023 at 12:27 Approved by: Mckinley Odell M.D. on 09/30/2023 at 12:28
--- NOTE | 2023-09-30 08:13 | DI.MRI.S_ITS ---
PROCEDURE: MR PELVIS WO/W CON INDICATIONS: PELVIC MASS,ABNORMAL LIVER ENZYMES TECHNIQUE: Coronal HASTE, sagittal breath-hold T2 FSE; axial T1 FSE with and without fat saturation through the pelvis. Optional long- and short-axis uterine nonbreath-hold T2 FSE through the uterus. Sagittal or axial dynamic VIBE during administration of contrast. Post-contrast axial or coronal VIBE/2-D FLASH with fat saturation from the iliac crests to the symphysis. Optional diffusion weighted imaging and ADC may be performed. COMPARISON: [facility], US, US PELVIC COMPLETE, 09/28/2023, 8:06. FINDINGS: Image quality: Excellent. Uterus: Uterus is normal in size. Endometrium is normal in thickness. Junctional zone is normal in thickness at 12 mm or less. Adnexa: Right ovarian mass measuring 11.2 x 10.7 by 12.0 centimeters. This contains cystic and solid components, with extensive papillary projections the mass contacts the wall of the sigmoid colon along the anterior margin (series 5, image 9). Urinary system: Bladder wall is normal in thickness. Distal ureters are non distended. Urethra appears normal in morphology. Nodes and vessels: No pelvic or inguinal adenopathy by size criteria. Iliac vessels are normal in size. Bowel and peritoneum: Small volume ascites. Inferior colon and small bowel loops are normal in caliber. No definite peritoneal deposit identified. Soft tissues: No inguinal hernias. No findings of pelvic floor incompetence in the absence of provocation. Bones: Marrow demonstrates normal overall signal. IMPRESSION: O-RADS 5 right ovarian mass, presumably ovarian cystadenocarcinoma. No pelvic adenopathy. Small volume ascites, presumably malignant. No definite peritoneal nodules. Dictated by: Mckinley Odell M.D. on 09/30/2023 at 12:11 Approved by: Mckinley Odell M.D. on 09/30/2023 at 12:26
== END ==
PROVIDERS: PCP Internal Medicine; Referring Provider Internal Medicine; Visit Provider Internal Medicine
DX: N95.0 Postmenopausal bleeding (principal); N83.9 Noninflammatory disorder of ovary, fallopian tube and broad ligament, unspecified; R18.8 Other ascites; K80.20 Calculus of gallbladder without cholecystitis without obstruction
CPT/HCPCS: 72197; 76700; A9579

== ENCOUNTER 2023-11-20 05:07 | Emergency (ER) | payer MEDICARE, OTHER, SELFPAY ==
[2023-11-20] VITALS (8 sets, daily range): BP systolic 124–148; BP diastolic 57–69; PULSE 61–65; RESP 14–22; TEMP 36.8; O2SAT 95–99; BMI 32.5
--- NOTE | 2023-11-20 05:17 | DI.CT.S_ITS ---
PROCEDURE: CT ABDOMEN PELVIS W CON INDICATIONS: SEVERE BILAT LOWER ABD PAIN, S/P CHEMO TECHNIQUE: After the administration of intravenous contrast, axial sections acquired from the lung bases to the pubic symphysis. Coronal and sagittal reformats were performed. For radiation dose reduction, the following was used: automated exposure control, adjustment of mA and/or kV according to patient size. COMPARISON: [facility], MR, MR PELVIS WO/W CON, 09/30/2023, 8:27. FINDINGS: Image quality: Diagnostic. Lower Chest: No pleural effusion. Central venous line. ABDOMEN: Liver: No solid mass. Gallbladder: No radiopaque gallstones or wall thickening. Biliary ducts: No biliary dilation. Pancreas: No ductal dilation. Spleen: Size is within normal limits. Adrenal Glands: No adrenal nodules. Kidneys and Ureters: No hydronephrosis. No solid mass. No complex renal cystic lesion which requires follow up. Stomach and Bowel: Normal colonic caliber, without significant wall thickening. The appendix is absent. Peritoneum: No abnormal intraperitoneal fluid. No free air. Cystic structure anterior to the right psoas muscle at the level of the common iliac artery bifurcation, measuring 3.7 x 2.6 cm, (2/54). This area is within the field of view on the post-contrast coronal series 23 on the prior MRI pelvis and is not visualized. No mural nodule seen. Ventral Wall: No significant ventral hernia. Lower midline scar. Abdominal Nodes: No retroperitoneal or mesenteric adenopathy by size criteria. Vessels: Aorta and inferior vena cava are normal in size. PELVIS: Pelvic Organs: Uterus and ovaries are absent. Bladder: Decompressed. Pelvic Nodes: No enlarged lymph nodes. Miscellaneous: No inguinal hernias are seen. Bones: No aggressive osseous abnormality. IMPRESSION: 1. No acute abnormality identified. No free fluid. 2. Post hysterectomy and oophorectomy. 3. Right retroperitoneal cyst measuring 3.7 cm is indeterminate. Dictated by: Larry Oliver M.D. on 11/20/2023 at 8:12 Approved by: Larry Oliver M.D. on 11/20/2023 at 8:24
--- NOTE | 2023-11-20 05:40 | ED_ITS ---
HPI - Abdominal Pain <Lisa Tomlinson MD - Last Filed: 11/21/23 04:07> General Chief Complaint: Abdominal Pain Stated Complaint: abd pain Time Seen by Provider: 11/20/23 05:10 Source: EMS Mode of arrival: EMS History of Present Illness HPI narrative: 73-year-old female with history of ovarian cancer, status post JARED BSO, omentectomy, right pelvic and para-aortic lymph node dissection on 10/06/2023, status post initial chemotherapy infusion 11/17 presents by EMS from home for bilateral lower quadrant abdominal pain. Patient states that while under going her 1st chemotherapy infusion she felt lightheaded and strange. She was given a steroid as well as a dose of Benadryl. She was able to complete her chemotherapy and she was subsequently discharged home. She states that she was told to look out for nausea, but not discharged on any medications. She states that yesterday she began to notice soreness in her pelvic and lower abdominal region. She initially attributed it to constipation and took MiraLax. She states that this temporarily ease the pain, but it continued to worsen and tonight she could not take it any longer and called 911. Related Data Home Medications Medication Instructions Recorded Confirmed aspirin 81 mg tablet,delayed 324 mg ##0 08/18/16 release Previous Rx's Medication Instructions Recorded omeprazole 40 mg capsule,delayed 40 mg PO HS 14 days #0 caps 08/18/16 release Allergies Allergy/AdvReac Type Severity Reaction Status Date / Time No Known Drug Allergies Allergy Verified 07/28/20 12:07 Review of Systems <Lisa Tomlinson MD - Last Filed: 11/21/23 04:07> Review of Systems Narrative: Negative except as noted above Patient History <Lisa Tomlinson MD - Last Filed: 11/21/23 04:07> Medical History Chicken pox Colon polyps (07/21/09) Depression (2011) Hayfever Insomnia Measles Menopause Mumps Rubella Urge urinary incontinence Surgical History (Updated 07/31/18 @ 09:24 by Mary Baez) History of colonoscopy with polypectomy (07/21/09) History of colonoscopy with polypectomy (04/13/16) History of removal of skin mole Anesthesia Status post appendectomy (09/1980) Family History (Updated 07/31/18 @ 09:03 by Mary Baez) Brother Age: 66 Overweight Father Colon cancer Skin cancer Prostate cancer Grandfather Heart disease Hypertension Grandmother Breast cancer Mother Age: 95 Hypothyroid Hypertension Knee pain Grandfather Cancer Colon cancer Sister Age: 72 Hypothyroid Sister Age: 64 Breast cancer Grandmother No problems noted. Sister No problems noted. Family/Other No problems noted. Family/Other No problems noted. Family/Other No problems noted. Family/Other No problems noted. Social History household members: spouse Smoking Status: Never smoker Smoking Status: Never smoker alcohol intake frequency: holidays/special occasions only Substance Use Type: does not use Exam <Lisa Tomlinson MD - Last Filed: 11/21/23 04:07> Initial Vital Signs Initial Vital Signs: Vital Signs Temperature 98.3 F 11/20/23 05:10 Pulse Rate 62 11/20/23 05:10 Respiratory Rate 22 11/20/23 05:10 Blood Pressure 148/69 H 11/20/23 05:10 Pulse Oximetry 99 11/20/23 05:10 Oxygen Delivery Method Room Air 11/20/23 05:10 Const: Awake, alert, no acute distress, nontoxic appearing Cardiac: regular rate, regular rhythm RESP: unlabored, clear bilaterally, no wheezing GI: Atraumatic, soft, lower abdominal surgical scar clean, dry, well healed. No reproducible tenderness to light or deep palpation MSK: Atraumatic, full range of motion, pulses equal Skin: Warm, Dry, intact, no rashes Neuro: AO x3, CN II-XII grossly intact, moves all extremities <Kristopher Macias DO - Last Filed: 11/20/23 09:02> Initial Vital Signs Initial Vital Signs: Vital Signs Temperature 98.3 F 11/20/23 05:10 Pulse Rate 62 11/20/23 05:10 Respiratory Rate 22 11/20/23 05:10 Blood Pressure 148/69 H 11/20/23 05:10 Pulse Oximetry 99 11/20/23 05:10 Oxygen Delivery Method Room Air 11/20/23 05:10 Course <Lisa Tomlinson MD - Last Filed: 11/21/23 04:07> Orders Ordered: Discontinued Medications Heparin Sodium (Porcine) (Heparin 500 Unit/5 Ml Port Flush) 500 unit IV PRN PRN PRN Reason: Flush Last Admin: 11/20/23 09:20 Dose: 500 unit Documented By: SPF Hydromorphone HCl (Hydromorphone 0.5 Mg Inj) 0.5 mg IV NOW ONE Stop: 11/20/23 05:18 Last Admin: 11/20/23 06:08 Dose: 0.5 mg Documented By: SB Vital Signs Vital signs: Vital Signs - 8 hr 11/20/23 05:10 11/20/23 05:13 11/20/23 05:14 Temperature 98.3 F Pulse Rate 62 61 Respiratory Rate 22 Blood Pressure 148/69 H Pulse Oximetry 99 99 99 Oxygen Delivery Method Room Air Room Air 11/20/23 05:17 Temperature Pulse Rate Respiratory Rate Blood Pressure 148/69 H Pulse Oximetry Oxygen Delivery Method <Kristopher Macias DO - Last Filed: 11/20/23 09:02> Orders Ordered: Discontinued Medications Heparin Sodium (Porcine) (Heparin 500 Unit/5 Ml Port Flush) 500 unit IV PRN PRN PRN Reason: Flush Last Admin: 11/20/23 09:20 Dose: 500 unit Documented By: SPF Hydromorphone HCl (Hydromorphone 0.5 Mg Inj) 0.5 mg IV NOW ONE Stop: 11/20/23 05:18 Last Admin: 11/20/23 06:08 Dose: 0.5 mg Documented By: PAUL Vital Signs Vital signs: Vital Signs - 8 hr 11/20/23 05:10 11/20/23 05:13 11/20/23 05:14 Temperature 98.3 F Pulse Rate 62 61 Respiratory Rate 22 Blood Pressure 148/69 H Pulse Oximetry 99 99 99 Oxygen Delivery Method Room Air Room Air 11/20/23 05:17 Temperature Pulse Rate Respiratory Rate Blood Pressure 148/69 H Pulse Oximetry Oxygen Delivery Method MDM - Abdominal Pain <Lisa Tomlinson MD - Last Filed: 11/21/23 04:07> Differential Diagnosis Differential diagnosis: Likely abdominal pain, acute appendicitis and calculus of kidney Lab Data 11/20/23 06:00 11/20/23 06:00 Labs: Lab Results 11/20/23 11/20/23 Range/Units 06:00 06:38 WBC 3.4 L (4.5-11.0) X10^3/uL RBC 3.54 L (4.0-5.2) X10^6/uL Hgb 11.2 L (12.0-16.0) g/dL Hct 33.0 L (36-46) % MCV 93.2 (80-100) fL MCH 31.5 (26-34) PG MCHC 33.8 (30-36) % RDW 12.8 (11.6-14.8) % Plt Count 240 (150-400) X10^3/uL Neut % (Auto) 43.6 L (50-75) % Lymph % (Auto) 43.9 H (25-40) % [place] % (Auto) 2.5 L (3-14) % Eos % (Auto) 8.8 H (2-4) % Baso % (Auto) 1.2 (0-2) % Neut # (Auto) 1500 (6475-5625) /uL Lymph # (Auto) 1500 (2221-4001) /uL [place] # (Auto) 100 (0-900) /uL Eos # (Auto) 300 (0-450) /uL Baso # (Auto) 0 (0-100) /uL Sodium 140 (137-145) mmol/L Potassium 3.4 (3.4-5.1) mmol/L Chloride 110 H (98-107) mmol/L Carbon Dioxide 26 (22-32) mmol/L BUN 13 (7-17) mg/dL Creatinine 0.75 (0.52-1.04) mg/dL Estimated GFR > 60 (>60) mL/min BUN/Creatinine Ratio 17.3 (6-22) Glucose 93 (80-110) mg/dL Calcium 8.9 (8.4-10.2) mg/dL Total Bilirubin 0.6 (0.2-1.3) mg/dL AST 53 H (14-36) IU/L ALT 94 H (<35) IU/L Alkaline Phosphatase 119 (38-126) U/L Total Protein 6.4 (6.3-8.2) g/dL Albumin 3.7 (3.5-5.0) g/dL Globulin 2.7 (1.7-4.1) g/dL Albumin/Globulin Ratio 1.4 (1.0-2.8) Urine Color Yellow Urine Appearance Clear Urine pH 7.0 (4.5-8.0) Ur Specific [place] <=1.005 (1.000-1.035) Urine Protein Negative (Negative) Urine Glucose (UA) Negative (Negative) g/dL Urine Ketones Negative (NEGATIVE) Urine Occult Blood Negative (Negative) Urine Nitrate Negative (Negative) Urine Bilirubin Negative (NEGATIVE) Urine Urobilinogen 0.2 (0.2) E.U./dL Ur Leukocyte Esterase Negative (NEGATIVE) Urine RBC None seen (0-5/HPF) Urine WBC None seen (0-5/HPF) Ur Squamous Epith Cells 1-5 /hpf (0-5/HPF) Urine Bacteria None seen (None) Ur Culture Indicated? Cult not indicated Vol Urine Centrifuged 10ml (spun) MDM Narrative Medical decision making narrative: Nontoxic appearing patient presenting for lower abdominal pain, known history of ovarian cancer, however her mass was resected and it was hopeful that with chemotherapy patient's cancer we will be cured. Abdomen is soft, there is no reproducible tenderness to palpation, however based on patient's medical history as well as fairly recent intra-abdominal surgery as well as recent induction chemotherapy plan to order laboratory work, CT imaging. Port accessed for medication administration and lab drop per patient request. Dilaudid for pain. Labs so far unremarkable. Pending imaging. Care of patient signed to Dr. Macias at 0700 Dr Macias: Received turned over. Review patient's history and physical and workup up to this point. Labs are unremarkable. CT scan shows no acute pathology. Patient states her symptoms have improved after pain medication. Does not appear to be any source of infection. No indication for surgical consultation. Discussed all this with the patient. She understands lack of definitive diagnosis. Will discharge patient home with return precautions. She expressed understanding and agreement. <Kristopher Macias, DO - Last Filed: 11/20/23 09:02> Lab Data Attestation: I reviewed the patient's lab results. Labs: Lab Results 11/20/23 11/20/23 Range/Units 06:00 06:38 WBC 3.4 L (4.5-11.0) X10^3/uL RBC 3.54 L (4.0-5.2) X10^6/uL Hgb 11.2 L (12.0-16.0) g/dL Hct 33.0 L (36-46) % MCV 93.2 (80-100) fL MCH 31.5 (26-34) PG MCHC 33.8 (30-36) % RDW 12.8 (11.6-14.8) % Plt Count 240 (150-400) X10^3/uL Neut % (Auto) 43.6 L (50-75) % Lymph % (Auto) 43.9 H (25-40) % [place] % (Auto) 2.5 L (3-14) % Eos % (Auto) 8.8 H (2-4) % Baso % (Auto) 1.2 (0-2) % Neut # (Auto) 1500 (6945-4819) /uL Lymph # (Auto) 1500 (6263-6996) /uL [place] # (Auto) 100 (0-900) /uL Eos # (Auto) 300 (0-450) /uL Baso # (Auto) 0 (0-100) /uL Sodium 140 (137-145) mmol/L Potassium 3.4 (3.4-5.1) mmol/L Chloride 110 H (98-107) mmol/L Carbon Dioxide 26 (22-32) mmol/L BUN 13 (7-17) mg/dL Creatinine 0.75 (0.52-1.04) mg/dL Estimated GFR > 60 (>60) mL/min BUN/Creatinine Ratio 17.3 (6-22) Glucose 93 (80-110) mg/dL Calcium 8.9 (8.4-10.2) mg/dL Total Bilirubin 0.6 (0.2-1.3) mg/dL AST 53 H (14-36) IU/L ALT 94 H (<35) IU/L Alkaline Phosphatase 119 (38-126) U/L Total Protein 6.4 (6.3-8.2) g/dL Albumin 3.7 (3.5-5.0) g/dL Globulin 2.7 (1.7-4.1) g/dL Albumin/Globulin Ratio 1.4 (1.0-2.8) Urine Color Yellow Urine Appearance Clear Urine pH 7.0 (4.5-8.0) Ur Specific [place] <=1.005 (1.000-1.035) Urine Protein Negative (Negative) Urine Glucose (UA) Negative (Negative) g/dL Urine Ketones Negative (NEGATIVE) Urine Occult Blood Negative (Negative) Urine Nitrate Negative (Negative) Urine Bilirubin Negative (NEGATIVE) Urine Urobilinogen 0.2 (0.2) E.U./dL Ur Leukocyte Esterase Negative (NEGATIVE) Urine RBC None seen (0-5/HPF) Urine WBC None seen (0-5/HPF) Ur Squamous Epith Cells 1-5 /hpf (0-5/HPF) Urine Bacteria None seen (None) Ur Culture Indicated? Cult not indicated Vol Urine Centrifuged 10ml (spun) Imaging Data CT scan - abdomen/pelvis: Radiologist's Impression: PROCEDURE: CT ABDOMEN PELVIS W CON INDICATIONS: SEVERE BILAT LOWER ABD PAIN, S/P CHEMO TECHNIQUE: After the administration of intravenous contrast, axial sections acquired from the lung bases to the pubic symphysis. Coronal and sagittal reformats were performed. For radiation dose reduction, the following was used: automated exposure control, adjustment of mA and/or kV according to patient size. COMPARISON: [facility], , MR PELVIS WO/W CON, 09/30/2023, 8:27. FINDINGS: Image quality: Diagnostic. Lower Chest: No pleural effusion. Central venous line. ABDOMEN: Liver: No solid mass. Gallbladder: No radiopaque gallstones or wall thickening. Biliary ducts: No biliary dilation. Pancreas: No ductal dilation. Spleen: Size is within normal limits. Adrenal Glands: No adrenal nodules. Kidneys and Ureters: No hydronephrosis. No solid mass. No complex renal cystic lesion which requires follow up. Stomach and Bowel: Normal colonic caliber, without significant wall thickening. The appendix is absent. Peritoneum: No abnormal intraperitoneal fluid. No free air. Cystic structure anterior to the right psoas muscle at the level of the common iliac artery bifurcation, measuring 3.7 x 2.6 cm, (2/54). This area is within the field of view on the post-contrast coronal series 23 on the prior MRI pelvis and is not visualized. No mural nodule seen. Ventral Wall: No significant ventral hernia. Lower midline scar. Abdominal Nodes: No retroperitoneal or mesenteric adenopathy by size criteria. Vessels: Aorta and inferior vena cava are normal in size. PELVIS: Pelvic Organs: Uterus and ovaries are absent. Bladder: Decompressed. Pelvic Nodes: No enlarged lymph nodes. Miscellaneous: No inguinal hernias are seen. Bones: No aggressive osseous abnormality. IMPRESSION: 1. No acute abnormality identified. No free fluid. 2. Post hysterectomy and oophorectomy. 3. Right retroperitoneal cyst measuring 3.7 cm is indeterminate. MDM Narrative Medical decision making narrative: Nontoxic appearing patient presenting for lower abdominal pain, known history of ovarian cancer, however her mass was resected and it was hopeful that with chemotherapy patient's cancer we will be cured. Abdomen is soft, there is no reproducible tenderness to palpation, however based on patient's medical history as well as fairly recent intra-abdominal surgery as well as recent induction chemotherapy plan to order laboratory work, CT imaging. Port accessed for medication administration and lab drop per patient request. Dilaudid for pain. Dr Macias: Received turned over. Review patient's history and physical and workup up to this point. Labs are unremarkable. CT scan shows no acute pathology. Patient states her symptoms have improved after pain medication. Does not appear to be any source of infection. No indication for surgical consultation. Discussed all this with the patient. She understands lack of definitive diagnosis. Will discharge patient home with return precautions. She expressed understanding and agreement. Discharge Plan Departure Patient Disposition: Home Clinical Impression: Abdominal pain Instructions: DI for Abdominal Pain-Adult Activity Restrictions/Additional Instructions: Fortunately your workup here in the emergency department is very reassuring. Recommend that you follow all of the instructions given to you by Oncology and keep all of your scheduled medical appointments. Return to the emergency department for new symptoms. Prescriptions: No Action aspirin 81 MG tablet,delayed release (DR/EC) 324 mg Qty: 0 omeprazole 40 MG capsule,delayed release(DR/EC) 40 mg PO HS 14 Days Qty: 0 0RF Referrals: Alpa Mckeon ARNP [Primary Care Provider] - Stand Alone Forms: Patient Portal/API
[2023-11-20] MEDS: HYDROMORPHONE 0.5 MG INJ IV (06:08)
[2023-11-20 06:09] LABS: Add Manual Diff / Slide Review NO; Basophils Absolute Auto 0 /uL (0-100); Basophils Percent Auto 1.2 % (0-2); Eosinophils Absolute Auto 300 /uL (0-450); Eosinophils Percent Auto 8.8 % (2-4); Hemoglobin 11.2 g/dL (12.0-16.0); Lymphocytes Absolute Auto 1500 /uL (1100-4500); Lymphocytes Percent Auto 43.9 % (25-40); Mean Corpuscular HGB Conc 33.8 % (30-36); Mean Corpuscular Hemoglobin 31.5 PG (26-34); Mean Corpuscular Volume 93.2 fL (80-100); Monocytes Absolute Auto 100 /uL (0-900); Monocytes Percent Auto 2.5 % (3-14); Neutrophils Absolute Auto 1500 /uL (1500-7000); Neutrophils Percent Auto 43.6 % (50-75); Platelet Count 240 X10^3/uL (150-400); Red Blood Cell Count 3.54 X10^6/uL (4.0-5.2); Red Cell Distribution Width 12.8 % (11.6-14.8); White Blood Cell Count 3.4 X10^3/uL (4.5-11.0)
[2023-11-20 06:24] LABS: Alanine Aminotransferase 94 IU/L (<35); Albumin 3.7 g/dL (3.5-5.0); Albumin Globulin Ratio 1.4 (1.0-2.8); Alkaline Phosphatase 119 U/L (38-126); Aspartate Aminotransferase 53 IU/L (14-36); BUN Creatinine Ratio 17.3 (6-22); Bilirubin Total 0.6 mg/dL (0.2-1.3); Blood Urea Nitrogen 13 mg/dL (7-17); Calcium 8.9 mg/dL (8.4-10.2); Carbon Dioxide 26 mmol/L (22-32); Chloride 110 mmol/L (98-107); Estimated Glomerular Filt Rate > 60 mL/min (>60); Globulin 2.7 g/dL (1.7-4.1); Glucose 93 mg/dL (80-110); HEMOLYSIS < 15 (0-50); Potassium 3.4 mmol/L (3.4-5.1); Sodium 140 mmol/L (137-145); Total Protein 6.4 g/dL (6.3-8.2)
[2023-11-20 07:42] LABS: Appearance Urine UA CLEAR; Bilirubin Urine UA NEGATIVE (NEGATIVE); Color Urine UA YELLOW; Glucose Urine UA NEGATIVE (Negative); Ketones Urine UA NEGATIVE (NEGATIVE); Leukocyte Esterase Urine UA NEGATIVE (NEGATIVE); Nitrite Urine UA NEGATIVE (Negative); Occult Blood Urine UA NEGATIVE (Negative); Protein Urine UA NEGATIVE (Negative); Specific Gravity Urine UA <=1.005 (1.000-1.035); Urobilinogen Urine UA 0.2 E.U./dL (0.2)
[2023-11-20 07:55] LABS: Bacteria Urine None Seen; Culture Indicated Urine Cult Not Indicated; RBC Urine None Seen (0-5/HPF); Squamous Epithelial Cell Urine 1-5 /HPF (0-5/HPF); Urine Volume 10mL (spun); WBC Urine None Seen (0-5/HPF)
== END 2023-11-20 09:25 | disposition home or self-care (01) ==
PROVIDERS: Emergency Medicine; Emergency Provider Emergency Medicine; PCP Internal Medicine
DX: R10.30 Lower abdominal pain, unspecified (principal); C56.9 Malignant neoplasm of unspecified ovary; Z90.710 Acquired absence of both cervix and uterus
CPT/HCPCS: 36415; 74177; 80053; 81001; 85025; 96374; 99284; J1170; J1642

== ENCOUNTER 2023-12-22 16:32 | Emergency (ER) | payer MEDICARE, OTHER, SELFPAY ==
[2023-12-22] VITALS (7 sets, daily range): BP systolic 135–143; BP diastolic 60–67; PULSE 71–80; RESP 15–26; TEMP 36.6; O2SAT 93–100; BMI 32.9
--- NOTE | 2023-12-22 17:05 | DI.RAD.S_ITS ---
PROCEDURE: XR CHEST 1V INDICATIONS: Shortness of breath TECHNIQUE: One view of the chest was acquired. COMPARISON: [facility], CHEST 1 VIEW, 08/18/2016, 2:16. [facility], CHEST 1 VIEW, 11/24/2010, 4:43. FINDINGS: Surgical changes and devices: Right chest wall Port-A-Cath. Lungs and pleura: Lungs are clear. No pleural effusions or pneumothorax. Mediastinum: Mediastinal contours appear normal. Heart size is normal. Bones and chest wall: No suspicious bony lesions. Overlying soft tissues appear unremarkable. IMPRESSION: No acute cardiopulmonary abnormality is seen. Dictated by: Jose Luis Portillo M.D. on 12/22/2023 at 17:33 Approved by: Jose Luis Portillo M.D. on 12/22/2023 at 17:34
[2023-12-22 18:02] LABS: Add Manual Diff / Slide Review NO; Basophils Absolute Auto 0 /uL (0-100); Basophils Percent Auto 0.5 % (0-2); Eosinophils Absolute Auto 400 /uL (0-450); Eosinophils Percent Auto 8.2 % (2-4); Hematocrit 33.9 % (36-46); Hemoglobin 11.5 g/dL (12.0-16.0); Lymphocytes Absolute Auto 1100 /uL (1100-4500); Lymphocytes Percent Auto 23.4 % (25-40); Mean Corpuscular HGB Conc 33.9 % (30-36); Mean Corpuscular Hemoglobin 31.4 PG (26-34); Mean Corpuscular Volume 92.6 fL (80-100); Monocytes Absolute Auto 100 /uL (0-900); Monocytes Percent Auto 1.4 % (3-14); Neutrophils Absolute Auto 3100 /uL (1500-7000); Neutrophils Percent Auto 66.5 % (50-75); Platelet Count 211 X10^3/uL (150-400); Red Blood Cell Count 3.66 X10^6/uL (4.0-5.2); Red Cell Distribution Width 13.6 % (11.6-14.8); White Blood Cell Count 4.6 X10^3/uL (4.5-11.0)
[2023-12-22 18:11] LABS: INR 0.9 (0.9-1.3); Prothrombin Time 10.7 SECONDS (9.4-12.5)
[2023-12-22 18:15] LABS: Lactate (Lactic Acid) 1.4 mmol/L (0.7-2.1)
[2023-12-22 18:19] LABS: Alanine Aminotransferase 226 IU/L (<35); Albumin 3.8 g/dL (3.5-5.0); Albumin Globulin Ratio 1.4 (1.0-2.8); Alkaline Phosphatase 240 U/L (38-126); Aspartate Aminotransferase 86 IU/L (14-36); Bilirubin Total 0.3 mg/dL (0.2-1.3); Blood Urea Nitrogen 18 mg/dL (7-17); Calcium 9.1 mg/dL (8.4-10.2); Carbon Dioxide 27 mmol/L (22-32); Chloride 106 mmol/L (98-107); Estimated Glomerular Filt Rate > 60 mL/min (>60); Globulin 2.8 g/dL (1.7-4.1); Glucose 105 mg/dL (80-110); HEMOLYSIS < 15 (0-50); Potassium 3.9 mmol/L (3.4-5.1); Sodium 138 mmol/L (137-145); Total Protein 6.6 g/dL (6.3-8.2)
[2023-12-22 18:27] LABS: Troponin I 0.014 ng/mL (0.01-0.034)
--- NOTE | 2023-12-22 18:59 | ED_ITS ---
HPI - Skin/Abscess/Foreign Bdy General Chief complaint: Skin/Abscess/Foreign Body Stated complaint: short of breath, other issues, on chemo Time Seen by Provider: 12/22/23 17:53 Source: patient Mode of arrival: Ambulatory History of Present Illness HPI narrative: Patient is a 73-year-old female. Has a current history of ovarian cancer. Is being followed by Oncology. Received chemotherapy earlier this week. This is a 2nd round of her chemotherapy. She states that over the past couple days she has developed a rash. Specifically on her upper extremities and abdomen. This is caused her to have some shortness of breath although she potentially thinks that the shortness of breath maybe anxiety related to all the symptoms. She did have a rash after her 1st round of chemotherapy but this 1 was more extensive and more prolonged. She has been taking Benadryl with some improvement. She currently thinks that the rashes improved somewhat because of the Benadryl. She is having some nausea with this because of the chemo. No chest pain. Related Data Home Medications Medication Instructions Recorded Confirmed aspirin 81 mg tablet,delayed 324 mg ##0 08/18/16 release Previous Rx's Medication Instructions Recorded omeprazole 40 mg capsule,delayed 40 mg PO HS 14 days #0 caps 08/18/16 release prednisone 20 mg tablet See Rx Instructions .Route 12/22/23 .COMPLEX #18 tabs Allergies Allergy/AdvReac Type Severity Reaction Status Date / Time No Known Drug Allergies Allergy Verified 12/22/23 16:51 Review of Systems Review of Systems ROS Unobtainable: All systems reviewed & are unremarkable except as noted in HPI and below Patient History Medical History Menopause Insomnia Urge urinary incontinence Colon polyps (07/21/09) Chicken pox Measles Mumps Rubella Depression (2011) Hayfever Surgical History (Updated 07/31/18 @ 09:24 by Mary Baez) History of colonoscopy with polypectomy (07/21/09) History of colonoscopy with polypectomy (04/13/16) History of removal of skin mole Anesthesia Status post appendectomy (09/1980) Family History (Updated 07/31/18 @ 09:03 by Mary Baez) Brother Age: 67 Overweight Father Colon cancer Skin cancer Prostate cancer Grandfather Heart disease Hypertension Grandmother Breast cancer Mother Age: 96 Hypothyroid Hypertension Knee pain Grandfather Cancer Colon cancer Sister Age: 73 Hypothyroid Sister Age: 65 Breast cancer Grandmother No problems noted. Sister No problems noted. Family/Other No problems noted. Family/Other No problems noted. Family/Other No problems noted. Family/Other No problems noted. Social History household members: spouse Smoking Status: Never smoker Smoking Status: Never smoker alcohol intake frequency: holidays/special occasions only Substance Use Type: does not use Exam Initial Vital Signs Initial Vital Signs: Vital Signs Temperature 97.9 F 12/22/23 16:35 Pulse Rate 80 12/22/23 16:35 Respiratory Rate 20 12/22/23 16:35 Blood Pressure 143/67 H 12/22/23 16:35 Pulse Oximetry 100 12/22/23 16:35 Oxygen Delivery Method Room Air 12/22/23 16:35 Const General: No ill appearing HENMT Head: normal to inspection and normocephalic Resp Effort & Inspection: normal respiratory effort Auscultation: clear to auscultation bilaterally Cardio Rate: regular rate Rhythm: regular rhythm GI Inspection: normal to inspection and non-distended Skin Other: Petechiae scattered throughout the upper extremities and upper chest. She does have a small patch of urticaria on her abdomen. No intraoral lesions. No lesions on the palms of her hands. Neuro General: patient alert and moves all extremities Extrem General: capillary refill normal Course Orders Ordered: ED Orders 12/22/23 17:05 XR chest 1V Stat EKG-12 Lead Stat Measure peak expiratory flow ONCE RT Consult Eval and Treat NOW 12/22/23 17:40 Complete Blood Count AUTO DIFF Stat Comprehensive Metabolic Panel Stat Lactate (Lactic Acid) Stat Prothrombin Time INR Stat Troponin I Stat Discontinued Medications Methylprednisolone (Methylprednisolone 125 Mg/2 Ml Vial) 125 mg IV NOW ONE Stop: 12/22/23 19:11 Last Admin: 12/22/23 19:43 Dose: 125 mg Documented By: ESTEVAN Vital Signs Vital signs: Vital Signs - 8 hr 12/22/23 16:35 12/22/23 17:37 12/22/23 18:00 Temperature 97.9 F Pulse Rate 80 76 71 Respiratory Rate 20 16 Blood Pressure 143/67 H 143/67 H Pulse Oximetry 100 93 94 Oxygen Delivery Method Room Air Room Air 12/22/23 18:30 12/22/23 19:00 12/22/23 19:30 Temperature Pulse Rate 74 79 75 Respiratory Rate 18 26 H 20 Blood Pressure Pulse Oximetry 97 98 Oxygen Delivery Method 12/22/23 19:50 12/22/23 19:50 Temperature Pulse Rate 75 Respiratory Rate 15 Blood Pressure 135/60 Pulse Oximetry Oxygen Delivery Method MDM - Skin/Abscess/Foreign Bdy Lab Data Attestation: I reviewed the patient's lab results. 12/22/23 17:40 12/22/23 17:40 Labs: Lab Results 12/22/23 Range/Units 17:40 WBC 4.6 (4.5-11.0) X10^3/uL RBC 3.66 L (4.0-5.2) X10^6/uL Hgb 11.5 L (12.0-16.0) g/dL Hct 33.9 L (36-46) % MCV 92.6 (80-100) fL MCH 31.4 (26-34) PG MCHC 33.9 (30-36) % RDW 13.6 (11.6-14.8) % Plt Count 211 (150-400) X10^3/uL Neut % (Auto) 66.5 (50-75) % Lymph % (Auto) 23.4 L (25-40) % [place] % (Auto) 1.4 L (3-14) % Eos % (Auto) 8.2 H (2-4) % Baso % (Auto) 0.5 (0-2) % Neut # (Auto) 3100 (0502-7657) /uL Lymph # (Auto) 1100 (8276-6821) /uL [place] # (Auto) 100 (0-900) /uL Eos # (Auto) 400 (0-450) /uL Baso # (Auto) 0 (0-100) /uL PT 10.7 (9.4-12.5) SECONDS INR 0.9 (0.9-1.3) Sodium 138 (137-145) mmol/L Potassium 3.9 (3.4-5.1) mmol/L Chloride 106 (98-107) mmol/L Carbon Dioxide 27 (22-32) mmol/L BUN 18 H (7-17) mg/dL Creatinine 0.72 (0.52-1.04) mg/dL Estimated GFR > 60 (>60) mL/min BUN/Creatinine Ratio 25.0 H (6-22) Glucose 105 (80-110) mg/dL Lactate 1.4 (0.7-2.1) mmol/L Calcium 9.1 (8.4-10.2) mg/dL Total Bilirubin 0.3 (0.2-1.3) mg/dL AST 86 H (14-36) IU/L ALT 226 H (<35) IU/L Alkaline Phosphatase 240 H (38-126) U/L Troponin I 0.014 (0.01-0.034) ng/mL Total Protein 6.6 (6.3-8.2) g/dL Albumin 3.8 (3.5-5.0) g/dL Globulin 2.8 (1.7-4.1) g/dL Albumin/Globulin Ratio 1.4 (1.0-2.8) Urine Dip Bedside Urine Glucose Negative Bedside Urine Bilirubin - Negative Bedside Urine Ketone - Negative Urine Specific [place] 1.005 Bedside Urine Occult Blood - Negative Bedside Urine pH 7.5 Bedside Urine Protein - Negative Bedside Urine Urobilinogen - Negative Bedside Urine Nitrite - Negative Bedside Urine Leukocytes - Negative Esterase Imaging Data Chest x-ray: Radiologist's Impression: PROCEDURE: XR CHEST 1V INDICATIONS: Shortness of breath TECHNIQUE: One view of the chest was acquired. COMPARISON: [facility], CHEST 1 VIEW, 08/18/2016, 2:16. [facility], CHEST 1 VIEW, 11/24/2010, 4:43. FINDINGS: Surgical changes and devices: Right chest wall Port-A-Cath. Lungs and pleura: Lungs are clear. No pleural effusions or pneumothorax. Mediastinum: Mediastinal contours appear normal. Heart size is normal. Bones and chest wall: No suspicious bony lesions. Overlying soft tissues appear unremarkable. IMPRESSION: No acute cardiopulmonary abnormality is seen. [facility] Narrative Medical decision making narrative: No respiratory distress. Chest x-ray is unremarkable. It appears that her rash is still present specifically in her abdomen but is much improved. I did discuss the case with Dr. Gomez oncologist on-call who states that the rashes most likely related to her chemotherapy regimen. He stated that it would be okay to give her some steroids. She was placed on a taper and given steroids here in the emergency department. I have low suspicion for ACS or pneumonia. No indication for antibiotics for now. Afebrile. Will have her contact her oncologist for a follow-up. She was given return precautions. She expressed understanding and agreement. Discharge Plan Departure Patient Disposition: Home Clinical Impression: Rash Instructions: DI for Rash Activity Restrictions/Additional Instructions: Your oncologist wanted us to put you on a tapered dose of steroids. This was sent to [facility]. You can continue to take the Benadryl as needed as well. Contact your oncologist office tomorrow for a follow-up. Return to the emergency department for new or worsening symptoms. Prescriptions: New prednisone 20 mg tablet See Rx Instructions .ROUTE .COMPLEX Qty: 18 0RF Rx Instructions: 2T PO QD for 5D then 1T PO QD for 5D then 1/2T PO QD for 5D No Action aspirin 81 MG tablet,delayed release (DR/EC) 324 mg Qty: 0 omeprazole 40 MG capsule,delayed release(DR/EC) 40 mg PO HS 14 Days Qty: 0 0RF Referrals: Alpa Mckeon ARNP [Primary Care Provider] - Stand Alone Forms: Patient Portal/API
[2023-12-22] MEDS: methylPREDNISolone 125 MG/2 ML VIAL IV (19:43)
== END 2023-12-22 19:53 | disposition home or self-care (01) ==
PROVIDERS: Emergency Medicine; Emergency Provider Emergency Medicine; PCP Internal Medicine
DX: R21 Rash and other nonspecific skin eruption (principal); R06.02 Shortness of breath
CPT/HCPCS: 36415; 71045; 80053; 81003; 83605; 84484; 85025; 85610; 96374; 99284; J2919

== ENCOUNTER → 2024-05-04 09:54 | Outpatient (CLI) | payer MEDICARE, OTHER, SELFPAY ==
--- NOTE | 2024-05-04 09:57 | DI.MG.S_ITS ---
BILATERAL DIGITAL SCREENING MAMMOGRAM 3D/2D WITH CAD: 05/04/2024 CLINICAL: Routine screening. Family history of breast cancer. Comparison is made to exams dated: 04/27/2023 mammogram, 04/02/2022 mammogram, and 03/27/2021 mammogram - [facility]. Both breasts are heterogeneously dense, which may obscure small masses (category c / 51-75% glandular tissue). Current study was also evaluated with a Computer Aided Detection (CAD) system. There are benign calcifications in both breasts. No significant masses, calcifications, or other findings are seen in either breast. There has been no significant interval change. IMPRESSION: BENIGN There is no mammographic evidence of malignancy. A 1 year screening mammogram is recommended. Based on the Tyrer Cuzick model (a risk assessment model) the patient's lifetime risk is 13.4% and her 10 year risk is 9.2%. According to the ACR, ACS, and NCCN guidelines, an annual breast MRI exam along with mammogram is recommended if the patient's lifetime risk is 20% or greater. This exam was interpreted at Station ID: [id number]. NOTE: For mammograms, a report in lay terms will be sent to the patient. Approximately 15% of breast malignancies will not be visualized mammographically. In the management of a palpable breast mass, a negative mammogram must not discourage biopsy of a clinically suspicious lesion. Electronically Signed By: Callum schwab/andres:05/04/2024 13:38:29 letter sent: Normal Exam ACR BI-RADS Category 2: Benign Finding(s) 3342F
== END ==
PROVIDERS: PCP Internal Medicine; Referring Provider Internal Medicine; Visit Provider Internal Medicine
DX: Z12.31 Encounter for screening mammogram for malignant neoplasm of breast (principal); Z80.3 Family history of malignant neoplasm of breast; R92.333 Mammographic heterogeneous density, bilateral breasts
CPT/HCPCS: 77063; 77067

== ENCOUNTER → 2024-07-24 | Outpatient (CLI) | payer MEDICARE, OTHER, SELFPAY ==
--- NOTE | 2024-07-24 16:19 | DI.RAD.S_ITS ---
PROCEDURE: XR CHEST 2V INDICATIONS: Acute cough TECHNIQUE: 2 views of the chest were acquired. COMPARISON: [facility], CR, XR CHEST 1V, 12/22/2023, 17:22. FINDINGS: Surgical changes and devices: Right Port-A-Cath. Lungs and pleura: Minimal streaky left basilar opacity and blunting of the costophrenic. Mediastinum: Mediastinal contours are normal. Heart size is normal. Bones and chest wall: No suspicious bony abnormalities. Soft tissues appear unremarkable. IMPRESSION: Blunting of the left costophrenic angle streaky opacity suggestive pneumonia/trace effusion. Dictated by: Margo Victor M.D. on 07/25/2024 at 16:49 Approved by: Margo Victor M.D. on 07/25/2024 at 16:50
== END ==
PROVIDERS: PCP Internal Medicine; Referring Provider Internal Medicine; Visit Provider Internal Medicine
DX: R05.1 Acute cough (principal)
CPT/HCPCS: 71046

== ENCOUNTER → 2024-07-30 11:28 | Outpatient (CLI) | payer MEDICARE, OTHER, SELFPAY ==
--- NOTE | 2024-07-30 11:31 | DI.RAD.S_ITS ---
PROCEDURE: XR CHEST 2V INDICATIONS: pneumonia TECHNIQUE: 2 views of the chest were acquired. COMPARISON: [facility], CR, XR CHEST 2V, 07/24/2024, 16:30. [facility], CR, XR CHEST 1V, 12/22/2023, 17:22. FINDINGS: Surgical changes and devices: Right port catheter terminates in the mid SVC. Lungs and pleura: Persistent opacity at the left lung base. No pleural effusions are new consolidation. Mediastinum: Cardiomediastinal contours are unchanged. Normal heart size. Bones and chest wall: Unremarkable IMPRESSION: Persistent opacity in the left lung base possibly airspace disease or atelectasis. Consider future imaging surveillance to assess for resolution. Dictated by: Dennis Adame M.D. on 07/30/2024 at 14:30 Approved by: Dennis Adame M.D. on 07/30/2024 at 14:31
== END ==
PROVIDERS: PCP Internal Medicine; Referring Provider Internal Medicine; Visit Provider Internal Medicine
DX: J18.9 Pneumonia, unspecified organism (principal)
CPT/HCPCS: 71046

== ENCOUNTER → 2024-09-06 15:03 | Outpatient (CLI) | payer MEDICARE, OTHER, SELFPAY ==
--- NOTE | 2024-09-06 15:08 | DI.RAD.S_ITS ---
PROCEDURE: XR CHEST 2V INDICATIONS: Pleural effusion TECHNIQUE: 2 views of the chest were acquired. COMPARISON: [facility], CR, XR CHEST 2V, 07/30/2024, 11:28. FINDINGS: Surgical changes and devices: Right IJ Isrhom-P-Rike catheter with tip at the a sign of atrial level. Lungs and pleura: Lungs are clear. No pleural effusions or pneumothorax. Confirmation of no significant pleural effusion is seen on lateral view. Mediastinum: Mediastinal contours are normal. Heart size is normal. Bones and chest wall: No suspicious bony abnormalities. Soft tissues appear unremarkable. IMPRESSION: No acute cardiopulmonary abnormality is seen. Dictated by: Tenzin Jaimes M.D. on 09/07/2024 at 11:00 Approved by: Tenzin Jaimes M.D. on 09/07/2024 at 11:06
== END ==
PROVIDERS: PCP Family Medicine; Referring Provider Internal Medicine; Visit Provider Internal Medicine
DX: J90 Pleural effusion, not elsewhere classified (principal); Z87.01 Personal history of pneumonia (recurrent)
CPT/HCPCS: 71046

== ENCOUNTER 2024-09-24 08:13 | Emergency (ER) | payer MEDICARE, OTHER, SELFPAY ==
[2024-09-24] VITALS (10 sets, daily range): BP systolic 135–169; BP diastolic 78–79; PULSE 54–85; RESP 16–18; TEMP 36.6–36.9; O2SAT 95–99; BMI 33.1
--- NOTE | 2024-09-24 08:22 | EKG_ITS ---
[address] [address] Test Date: 2024-09-24 Pat Name: Regina Reynolds Department: Room: Gender: Female Global Account Director: HEIDI : 1950 Requested By: Order Number: [id number] Reading MD: Vitaliy Perrin MD Measurements Intervals [place] Rate: 64 P: 40 ME: 166 QRS: -34 QRSD: 104 T: 31 QT: 414 QTc: 427 Interpretive Statements Sinus rhythm with marked sinus arrhythmia Left axis deviation Incomplete right bundle branch block NO SIGNIFICANT CHANGE FROM PRIOR TRACING Electronically Signed On 09-24-2024 16:45:44 PST by Vitaliy Perrin MD
--- NOTE | 2024-09-24 08:27 | DI.RAD.S_ITS ---
PROCEDURE: XR CHEST 2V INDICATIONS: port pain right side TECHNIQUE: 2 views of the chest were acquired. COMPARISON: [facility], , XR CHEST 2V, 09/06/2024, 15:07. FINDINGS: Surgical changes and devices: Right chest Port-A-Cath, with intact catheter, the tip which projects to the SVC right atrial junction. Lungs and pleura: Lungs are clear. No pleural effusions or pneumothorax. Mediastinum: Mediastinal contours are normal. Heart size is normal. Bones and chest wall: No suspicious bony abnormalities. Soft tissues appear unremarkable. IMPRESSION: No acute cardiopulmonary abnormality is seen. Port-A-Cath intact, tip projects to the right atrial SVC junction. Dictated by: Jac Elizabeth M.D. on 09/24/2024 at 8:56 Approved by: Jac Elizabeth M.D. on 09/24/2024 at 8:57
--- NOTE | 2024-09-24 08:51 | ED_ITS ---
HPI - Chest Pain General Chief Complaint: Chest Pain Stated Complaint: chest pain RT side along arm Time Seen by Provider: 09/24/24 08:25 Source: patient Mode of arrival: Ambulatory History of Present Illness HPI narrative: Patient is 74-year-old female history of ovarian cancer presenting today with right-sided chest pain around her port. Her port was placed about 1 year ago she had surgery and chemotherapy. She has not currently on chemotherapy. She has had some pain and irritation with her port since it has been placed. She thinks maybe she strained her irritated it couple of weeks ago. It really hurts every time she moves turns it is very positional that right side. She is pain radiating into neck and back. She also gets very anxious about this which she is aware of. She took chlorazepam prior to arrival because it usually helps calm her but she is still having quite a bit of pain. Met 1 point she was given oxycodone for her pain. However today it just seems to be a little bit worse it has not going away. She has no shortness of breath no numbness tingling or weakness. She was supposed to be here today for some outpatient blood work including a CA 125 Related Data Home Medications Medication Instructions Recorded Confirmed aspirin 81 mg tablet,delayed 324 mg ##0 08/18/16 release Previous Rx's Medication Instructions Recorded omeprazole 40 mg capsule,delayed 40 mg PO HS 14 days #0 caps 08/18/16 release prednisone 20 mg tablet See Rx Instructions .Route 12/22/23 .COMPLEX #18 tabs hydrocodone 5 mg-acetaminophen 325 1 tab PO Q6H PRN pain #10 tabs 09/24/24 mg tablet lidocaine 5 % topical patch 1 patch topical DAILY PRN pain 09/24/24 (scale score 1-3) #30 ea Allergies Allergy/AdvReac Type Severity Reaction Status Date / Time No Known Drug Allergies Allergy Verified 12/22/23 16:51 Patient History Medical History Menopause Insomnia Urge urinary incontinence Colon polyps (07/21/09) Chicken pox Measles Mumps Rubella Depression (2011) Hayfever Surgical History History of colonoscopy with polypectomy (07/21/09) History of colonoscopy with polypectomy (04/13/16) History of removal of skin mole Anesthesia Status post appendectomy (09/1980) Family History Brother Age: 67 Overweight Father Colon cancer Skin cancer Prostate cancer Grandfather Heart disease Hypertension Grandmother Breast cancer Mother Age: 96 Hypothyroid Hypertension Knee pain Grandfather Cancer Colon cancer Sister Age: 73 Hypothyroid Sister Age: 65 Breast cancer Grandmother No problems noted. Sister No problems noted. Family/Other No problems noted. Family/Other No problems noted. Family/Other No problems noted. Family/Other No problems noted. Social History household members: spouse Smoking Status: Never smoker Smoking Status: Never smoker alcohol intake frequency: holidays/special occasions only Exam Initial Vital Signs Initial Vital Signs: Vital Signs Pulse Rate 79 09/24/24 08:19 Pulse Oximetry 99 09/24/24 08:19 GENERAL: Alert pleasant 74-year-old female HEENT: Head atraumatic,EOMI, pupils reactive, face symmetric, moist mucous membranes CARDIOVASCULAR: Regular rate and rhythm without murmurs, rubs or gallops. Port noted on right side of chest no erythema minimal tender to touch RESPIRATORY: Breath sounds equal bilaterally, no wheezes rales or rhonchi. ABDOMEN: Soft, nontender. Normoactive bowel sounds all 4 quadrants. No guarding or rebound. EXTREMITIES: Normal range of motion, no clubbing or edema. Neurovascularly intact NEUROLOGICAL: Alert and oriented x4.Normal gait and speech. SKIN: Warm, dry, no laceration, no petechiae, no rashes or lesions. Course Orders Ordered: ED Orders 09/24/24 09:30 Cancer Antigen 125 Stat Complete Blood Count AUTO DIFF Stat Comprehensive Metabolic Panel Stat Lipase Stat Troponin & CK Cardiac Panel Stat Discontinued Medications Ketorolac Tromethamine (Ketorolac 30 Mg/Ml Vial) 15 mg IV NOW ONE Stop: 09/24/24 08:37 Last Admin: 09/24/24 09:37 Dose: 15 mg Documented By: Vital Signs Vital signs: Vital Signs - 8 hr 09/24/24 10:30 09/24/24 11:00 09/24/24 11:00 Temperature Pulse Rate 64 62 85 Respiratory Rate 16 Blood Pressure 135/78 Pulse Oximetry 96 99 99 Oxygen Delivery Method Room Air 09/24/24 11:16 Temperature 98.4 F Pulse Rate 68 Respiratory Rate 18 Blood Pressure 166/78 H Pulse Oximetry 98 Oxygen Delivery Method Room Air MDM - Chest Pain Lab Data 09/24/24 09:30 09/24/24 09:30 Labs: Lab Results 09/24/24 Range/Units 09:30 WBC 3.9 L (4.5-11.0) X10^3/uL RBC 3.72 L (4.0-5.2) X10^6/uL Hgb 12.0 (12.0-16.0) g/dL Hct 35.7 L (36-46) % MCV 96.1 (80-100) fL MCH 32.2 (26-34) PG MCHC 33.5 (30-36) % RDW 14.1 (11.6-14.8) % Plt Count 235 (150-400) X10^3/uL Neut % (Auto) 49.6 L (50-75) % Lymph % (Auto) 37.8 (25-40) % [place] % (Auto) 7.1 (3-14) % Eos % (Auto) 4.3 H (2-4) % Baso % (Auto) 1.2 (0-2) % Neut # (Auto) 1900 (3323-4138) /uL Lymph # (Auto) 1500 (7364-2931) /uL [place] # (Auto) 300 (0-900) /uL Eos # (Auto) 200 (0-450) /uL Baso # (Auto) 0 (0-100) /uL Sodium 138 (137-145) mmol/L Potassium 3.7 (3.4-5.1) mmol/L Chloride 106 (98-107) mmol/L Carbon Dioxide 29 (22-32) mmol/L BUN 16 (7-17) mg/dL Creatinine 0.83 (0.52-1.04) mg/dL Estimated GFR > 60 (>60) mL/min BUN/Creatinine Ratio 19.3 (6-22) Glucose 99 (80-110) mg/dL Calcium 9.3 (8.4-10.2) mg/dL Total Bilirubin 0.5 (0.2-1.3) mg/dL AST 43 H (14-36) IU/L ALT 52 H (<35) IU/L Alkaline Phosphatase 109 (38-126) U/L Total Creatine Kinase 101 (30-135) U/L Troponin I < 0.012 (0.01-0.034) ng/mL Total Protein 6.8 (6.3-8.2) g/dL Albumin 4.4 (3.5-5.0) g/dL Globulin 2.4 (1.7-4.1) g/dL Albumin/Globulin Ratio 1.8 (1.0-2.8) Lipase 84 (23-300) U/L CA 125 Antigen < 5.5 (0-35) U/mL Imaging Data Chest x-ray: Radiologist's Impression: PROCEDURE: XR CHEST 2V INDICATIONS: port pain right side TECHNIQUE: 2 views of the chest were acquired. COMPARISON: [facility], , XR CHEST 2V, 09/06/2024, 15:07. FINDINGS: Surgical changes and devices: Right chest Port-A-Cath, with intact catheter, the tip which projects to the SVC right atrial junction. Lungs and pleura: Lungs are clear. No pleural effusions or pneumothorax. Mediastinum: Mediastinal contours are normal. Heart size is normal. Bones and chest wall: No suspicious bony abnormalities. Soft tissues appear unremarkable. IMPRESSION: No acute cardiopulmonary abnormality is seen. Port-A-Cath intact, tip projects to the right atrial SVC junction. Dictated by: Jac Elizabeth M.D. on 09/24/2024 at 8:56 Approved by: Jac Elizabeth M.D. on 09/24/2024 at 8:5 ECG Data Attestation: I personally reviewed and interpreted this ECG as follows: Prior ECG tracings: available for review Interpretation: Sinus rhythm rate 64 CT interval 166 QRS [address] changes or T-wave inversions no arrhythmia MDM Narrative Medical decision making narrative: MDM CC: Right-sided chest pain Complicating co-morbidities: Ovarian cancer Medical records reviewed: Previous ED visits Differential considered: Musculoskeletal port issue acute coronary syndrome cholelithiasis cholecystitis Exam documented above, pertinent findings include: Pain is reproducible on the right port region of otherwise nontoxic clear breath sounds regular rate Lab Test results independently reviewed as above. Pertinent findings: WBC 3.8 hemoglobin 12 hematocrit 35.7 platelets 235 Sodium 138 potassium 3.7 chloride 106 carbon dioxide 29 BUN 16 creatinine 0.8 Troponin negative Bilirubin 0.5 AST 43 ALT 52 alk-phos although delayed lipase 84 CA 125 less than 5.5 Independently reviewed EKG as above Sinus rhythm no ischemia Imaging studies independently reviewed: Chest x ray Port in place Treatments: Toradol Re-evaluations: Pain is actually significantly better after Toradol. She appears more comfortable. Discussion: 74-year-old female presenting today with a right-sided port pain. I do suspect musculoskeletal it is very positional tender to touch. Blood work today is overall reassuring. No evidence of infection. No concern for pulmonary embolism. Discharge Plan Departure Patient Disposition: Home Clinical Impression: Atypical chest pain Instructions: DI for Atypical Chest Pain Activity Restrictions/Additional Instructions: *You have been diagnosed with atypical chest *What to do: At this time I do think it is more musculoskeletal related. It may be related to your port. You will have to talk to Oncology in regards to taking get out. I would try some heat or some ice *Continue to take medications as directed Motrin 600 mg every 6 hours for [id number] pain Lidocaine patch every 12 hours Methocarbamol 500 mg every 8 hours, may go up to 1000mg-1500mg every 6 hours if needed [place] 1 tablet every 4-6 hours if needed for severe pain *Follow up with your primary care provider in 2-3 days or call [phone] *Return to ER if you should have increasing pain shortness of breath fever [or] any new, worsening or concerning symptoms CONTROLLED SUBSTANCE DISCHARGE (Narcotoic/benzodiazepine/Flexeril/Phenergan) 1. You have been prescribed narcotic medications, it does have acetaminophen/Tylenol/paracetamol in it, DO NOT TAKE MORE THAN 4,00mg in 24 hours of Tylenol. TRAMADOL DOES NOT CONTAIN TYLENOL 2. Please understand that we cannot provide further refills of narcotics, benzodiazepines or controlled substances through the ED and her pain management will need to be through your provider. 3. While on these medications you cannot drive or operate heavy machinery. 4. You cannot sign legal documents or perform any duties such as this. 5. As long as you're taking opiate pain medications he should also be taking a stool softener such as Colace, Dulcolax, MiraLAX or prune juice, to help avoid constipation. Prescriptions: New hydrocodone-acetaminophen 5-325 mg tablet 1 tab PO Q6H PRN (Reason: pain) Qty: 10 0RF lidocaine 5 % adhesive patch,medicated 1 patch topical DAILY PRN (Reason: pain (scale score 1-3)) Qty: 30 0RF Rx Instructions: leave on most painful area for up to 12 hrs No Action aspirin 81 MG tablet,delayed release (DR/EC) 324 mg Qty: 0 omeprazole 40 MG capsule,delayed release(DR/EC) 40 mg PO HS 14 Days Qty: 0 0RF prednisone 20 mg tablet See Rx Instructions .ROUTE .COMPLEX Qty: 18 0RF Rx Instructions: 2T PO QD for 5D then 1T PO QD for 5D then 1/2T PO QD for 5D Referrals: Parvin Quinteros MD [Primary Care Provider] - Stand Alone Forms: Patient Portal/API/Survey
[2024-09-24] MEDS: KETOROLAC 30 MG/ML VIAL 15 MG IV (09:37)
[2024-09-24 09:41] LABS: Add Manual Diff / Slide Review NO; Basophils Absolute Auto 0 /uL (0-100); Basophils Percent Auto 1.2 % (0-2); Eosinophils Absolute Auto 200 /uL (0-450); Eosinophils Percent Auto 4.3 % (2-4); Hematocrit 35.7 % (36-46); Lymphocytes Absolute Auto 1500 /uL (1100-4500); Lymphocytes Percent Auto 37.8 % (25-40); Mean Corpuscular HGB Conc 33.5 % (30-36); Mean Corpuscular Hemoglobin 32.2 PG (26-34); Mean Corpuscular Volume 96.1 fL (80-100); Monocytes Absolute Auto 300 /uL (0-900); Monocytes Percent Auto 7.1 % (3-14); Neutrophils Absolute Auto 1900 /uL (1500-7000); Neutrophils Percent Auto 49.6 % (50-75); Platelet Count 235 X10^3/uL (150-400); Red Blood Cell Count 3.72 X10^6/uL (4.0-5.2); Red Cell Distribution Width 14.1 % (11.6-14.8); White Blood Cell Count 3.9 X10^3/uL (4.5-11.0)
[2024-09-24 09:51] LABS: Alanine Aminotransferase 52 IU/L (<35); Albumin 4.4 g/dL (3.5-5.0); Albumin Globulin Ratio 1.8 (1.0-2.8); Alkaline Phosphatase 109 U/L (38-126); Aspartate Aminotransferase 43 IU/L (14-36); BUN Creatinine Ratio 19.3 (6-22); Bilirubin Total 0.5 mg/dL (0.2-1.3); Blood Urea Nitrogen 16 mg/dL (7-17); Calcium 9.3 mg/dL (8.4-10.2); Carbon Dioxide 29 mmol/L (22-32); Chloride 106 mmol/L (98-107); Creatine Kinase 101 U/L (30-135); Estimated Glomerular Filt Rate > 60 mL/min (>60); Globulin 2.4 g/dL (1.7-4.1); Glucose 99 mg/dL (80-110); HEMOLYSIS < 15 (0-50); Lipase 84 U/L (23-300); Potassium 3.7 mmol/L (3.4-5.1); Sodium 138 mmol/L (137-145); Total Protein 6.8 g/dL (6.3-8.2)
[2024-09-24 10:04] LABS: Troponin I < 0.012 ng/mL (0.01-0.034)
[2024-09-24 10:25] LABS: Cancer Antigen 125 < 5.5 U/mL (0-35)
== END 2024-09-24 11:18 | disposition home or self-care (01) ==
PROVIDERS: Emergency Provider Emergency Medicine; PCP Family Medicine
DX: R07.89 Other chest pain (principal); M54.2 Cervicalgia; I49.8 Other specified cardiac arrhythmias; I45.19 Other right bundle-branch block
CPT/HCPCS: 71046; 80053; 82550; 83690; 84484; 85025; 86304; 93005; 96374; 99284; J1885

== ENCOUNTER → 2024-11-09 14:56 | Outpatient (CLI) | payer MEDICARE, OTHER, SELFPAY ==
--- NOTE | 2024-11-09 14:58 | DI.US.S_ITS ---
PROCEDURE: US ABDOMEN LIMITED INDICATIONS: PAIN AT R UPPER CHEST/RT MEDIAL CLAV FOR POSS LIPO TECHNIQUE: Real-time focused scanning was performed of the abdomen, with image documentation. COMPARISON: [facility], US, US ABDOMEN COMPLETE, 09/30/2023, 9:14. [facility], CT, CT CHEST ABDOMEN PELVIS WITH CONTRAST, 06/06/2024, 12:00. FINDINGS: Hypoechoic focus near the previous port measuring 9 x 7 x 5 mm. No other abnormality. IMPRESSION: Small hypoechoic focus possibly representing a small area of fluid versus scarring. Dictated by: Margo Victor M.D. on 11/09/2024 at 16:17 Approved by: Margo Victor M.D. on 11/09/2024 at 16:21
== END ==
PROVIDERS: PCP Family Medicine; Referring Provider Family Medicine; Visit Provider Family Medicine
DX: M85.611 Other cyst of bone, right shoulder (principal); R07.89 Other chest pain
CPT/HCPCS: 76705

== ENCOUNTER → 2024-11-14 10:59 | Outpatient (CLI) | payer MEDICARE, OTHER, SELFPAY ==
--- NOTE | 2024-11-14 11:02 | DI.RAD.S_ITS ---
PROCEDURE: XR CLAVICLE RT INDICATIONS: GROWTH CALVIVLE TECHNIQUE: 2 views of the clavicle were acquired. COMPARISON: [facility], CR, XR CHEST 2V, 09/24/2024, 8:38. FINDINGS: Bones: No fractures or dislocations. No suspicious bony lesions. Mild degenerative hypertrophy at the right AC joint. Soft tissues: No suspicious soft tissue calcifications. Right-sided port has been removed. IMPRESSION: Mild degenerative hypertrophy at the right AC joint. Dictated by: Larry Oliver M.D. on 11/15/2024 at 8:09 Approved by: Larry Oliver M.D. on 11/15/2024 at 8:10
== END ==
PROVIDERS: PCP Family Medicine; Referring Provider Family Medicine; Visit Provider Family Medicine
DX: D49.2 Neoplasm of unspecified behavior of bone, soft tissue, and skin (principal)
CPT/HCPCS: 73000

== ENCOUNTER → 2025-05-31 08:19 | Outpatient (CLI) | payer MEDICARE, OTHER, SELFPAY ==
--- NOTE | 2025-05-31 08:20 | DI.MG.S_ITS ---
MM screening mammo BI: 05/31/2025. BI-RADS: 1 CLINICAL: 74-year old female for bilateral screening mammogram. Tyrer-Cuzick lifetime risk of 9.1%. Current reported family history of breast cancer: sister. Personal history of ovarian cancer. PRIOR EXAMS 05/04/2024, 04/27/2023, 04/02/2022, 03/27/2021. MAMMOGRAPHY TECHNIQUE: 2D and 3D (tomosynthesis) digital mammographic views obtained, with additional images as needed for full coverage. Current study was also evaluated with a Computer Aided Detection (CAD) system. DENSITY C. The breasts are heterogeneously dense, which may obscure small masses. MAMMOGRAPHY FINDINGS Bilateral: No suspicious mass, asymmetry, microcalcification, or other abnormality seen. IMPRESSION: * No evidence of malignancy. RECOMMENDATIONS Bilateral * Annual screening mammography. OVERALL ASSESSMENT CATEGORY BI-RADS-1: Negative. The [employer] recommends annual screening mammography beginning at age 40 for women with average risk of breast cancer. ELECTRONICALLY SIGNED: Kaylyn Montelongo M.D. on 06/03/2025 at 08:29:50 AM PT Interpreting Station ID: [id number]
== END ==
LOC: MAMMO 08:20
PROVIDERS: PCP Family Medicine; Referring Provider Family Medicine; Visit Provider Family Medicine
DX: Z12.31 Encounter for screening mammogram for malignant neoplasm of breast (principal); R92.333 Mammographic heterogeneous density, bilateral breasts; Z80.3 Family history of malignant neoplasm of breast; Z85.43 Personal history of malignant neoplasm of ovary
CPT/HCPCS: 77063; 77067

== ENCOUNTER → 2025-07-22 13:24 | Outpatient (CLI) | payer MEDICARE, OTHER, SELFPAY ==
--- NOTE | 2025-07-22 13:25 | DI.MG.S_ITS ---
MM diagnostic mammo unilat LT: 07/22/2025. BI-RADS: 3 CLINICAL: 75-year old female for left diagnostic mammogram that is a recall from screening on 05/31/2025. Tyrer-Cuzick lifetime risk of 8.6%. Current reported family history of breast cancer: sister. Personal history of ovarian cancer. PRIOR EXAMS Mammogram(s): 05/31/2025, 05/04/2024, 04/27/2023, 04/02/2022, 03/27/2021. MAMMOGRAPHY TECHNIQUE: 2D and 3D (tomosynthesis) digital mammographic views obtained, with additional images as needed for full coverage. Current study was also evaluated with a Computer Aided Detection (CAD) system. DENSITY Left: C. The breast is heterogeneously dense, which may obscure small masses. MAMMOGRAPHY FINDINGS Left: Outer at 2:00, Anterior depth, measuring 0.3cm: Correlating with findings on screening mammogram there are probably-benign rim calcifications. There is a round low-density focal asymmetry associated with the calcifications, which likely represents fat necrosis. IMPRESSION: Left (Calcification): Outer at 2:00, Anterior depth, measuring 0.3cm * Probably Benign. RECOMMENDATIONS Left: Outer at 2:00, Anterior depth * Six month followup with diagnostic mammography. COMMENTS: Findings and recommendations were conveyed to the patient during today's evaluation. OVERALL ASSESSMENT CATEGORY BI-RADS-3: Probably Benign. ELECTRONICALLY SIGNED: Kaylyn Montelongo M.D. on 07/22/2025 at 02:16:46 PM PT Interpreting Station ID: [id number]
== END ==
LOC: MAMMO 13:25
PROVIDERS: PCP Family Medicine; Referring Provider Family Medicine; Visit Provider Family Medicine
DX: R92.8 Other abnormal and inconclusive findings on diagnostic imaging of breast (principal); R92.1 Mammographic calcification found on diagnostic imaging of breast; R92.332 Mammographic heterogeneous density, left breast; N64.89 Other specified disorders of breast; Z85.43 Personal history of malignant neoplasm of ovary; Z80.3 Family history of malignant neoplasm of breast
CPT/HCPCS: 77065; G0279